=== PATIENT | female | born 1990 | race Caucasian/White ===

== ENCOUNTER 2018-08-02 11:06 | Emergency (ER) | payer MEDICAID, SELFPAY ==
[2018-08-02 11:21] VITALS: BP 133/71; PULSE 77; RESP 16; TEMP 36.7; O2SAT 97
--- NOTE | 2018-08-02 11:33 | W.ED.GENAD ---
Discharge Plan Disposition Patient Disposition: HOME Condition: Good Discharge Details Chief Complaint: Orthopedic Clinical Impression: Tendinopathy Primary Care Provider: Krystin Narayan ED Provider: Matthew Colmenares Home Meds and New Rx's Prescriptions: No Action levonorgestrel [Mirena] 1 EACH intrauterine device 1 ea Intrauterine ONCE Qty: 1 RF: 0 sertraline 50 MG tablet 200 mg PO DAILY RF: 0 Discharge Instructions Instructions: Tenosynovitis (ED) Stand Alone Forms: Physical Therapy Referral, Work Release Referrals: Krystin Narayan [Primary Care Provider] - Return if symptoms worsen Discharge Data Discharge Date/Time-TO BE ENTERED AT DEPARTURE: 08/02/18 12:59 Medical Decision Making Possible carpal tunnel syndrome. Will x-ray, provide universal wrist splint and have her attend PT. Advised to f/u with pcp in a month for f/u and further treatment if needed. Apprised of normal x-rays. Nurse fitted for universal wrist splint. Advised to wear all the time especially at night. Will refer to PT. Exam and history is consistent with carpal tunnel or tenosynovitis. Advised to f/u with pcp. Provided work note. Advised to use NSAID of her choice for pain. Medical Records Medical records reviewed: Yes I reviewed the patient's medical records. Imaging Data Radiologic Study: Imaging: X-Ray My impression: No acute bolivar pathology. No fracture visualized. HPI General Mode of arrival: ambulatory. Date/Time Provider Initiated Documentation: 08/02/18 11:21. Limitations to Documentation: no limitations. Information obtained by: patient. History of Present Illness 27 year old F presents to the emergency department with the chief complaint of tenosynovitis, HPI Narrative: 27 y/o female here with c/o right wrist and hand pain with intermittent numbness. She explains she has had it before but it went away after wrapping with an LAISHA wrap. She notices it the most at night. 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 Related Data Home Medications Medication Instructions Recorded Confirmed levonorgestrel [Mirena] 1 ea INTRAUTERINE ONCE #1 implant 12/25/17 08/02/18 sertraline 200 mg PO DAILY 08/02/18 08/02/18 Allergies Allergy/AdvReac Type Severity Reaction Status Date / Time Fish Containing Products AdvReac Mild Nausea Unverified 08/02/18 11:23 General Stated Complaint: Orthopedic DILSHAD: 4 Review of Systems Musculoskeletal Reports arthralgias (right wrist), Reports numbness (right hand fingers) and Reports tingling (right hand fingers) Neurologic Reports numbness (right hand fingers) and Reports tingling (right hand fingers) PFSH Family History Mother Depression Brother Depression Father No problems noted. Sister No problems noted. Sister No problems noted. Sister No problems noted. Sister No problems noted. Medical History Asthma Congenital stenosis of pulmonary valve Depression Social History Smoking/Tobacco Use Status: Current every day Surgical History wisdom tooth extraction Exam Const General: cooperative, healthy appearing, comfortable and no acute distress Nutritional Appearance: overweight Orientation: alert and oriented x3 Neuro General: alert, awake, oriented x3 and gait normal Sensory Exam: no sensory deficits noted Extrem General: normal to inspection, full ROM and normal capillary refill Right upper extremity: normal to inspection, full ROM, normal capillary refill, no joint enlargement and wrist Details: normal to inspection, tenderness Location: of the dorsal wrist (right), normal vascular exam, radial pulse present, ulnar pulse present, Tinel's negative (positive) and Phalen's negative (positive numbness and tingling ); no deformity; no cyanosis Psych Appearance: grossly normal Speech and Movement: speech and movement normal Mood: congruent mood Affect: normal affect Attitude: cooperative Thought Process: normal Thought Content: normal Insight: insight good Judgment: judgment good Course Vital Signs Temperature 36.7 C 08/02/18 11:21 Pulse 77 08/02/18 11:21 Respiratory Rate 16 08/02/18 11:21 Blood Pressure 133/71 08/02/18 11:21 Pulse Oximetry 97 08/02/18 11:21 Temperature 36.7 C 08/02/18 11:21 Temperature Source Temporal Artery Scan 08/02/18 11:21 Pulse 77 08/02/18 11:21 Respiratory Rate 16 08/02/18 11:21 Blood Pressure 133/71 08/02/18 11:21 Blood Pressure Position Sitting 08/02/18 11:21 Pulse Oximetry 97 08/02/18 11:21 Oxygen Delivery Method Room Air 08/02/18 11:21 Oxygen Flow Rate 0 08/02/18 11:21 Pain Level 5 08/02/18 11:21
--- NOTE | 2018-08-02 11:39 | ED.GENADUL_ITS ---
Discharge Plan Disposition Patient Disposition: HOME Condition: Good Discharge Details Chief Complaint: Orthopedic Clinical Impression: Tendinopathy Primary Care Provider: Krystin Narayan ED Provider: Matthew Colmenares Home Meds and New Rx's Prescriptions: No Action levonorgestrel [Mirena] 1 EACH intrauterine device 1 ea Intrauterine ONCE Qty: 1 RF: 0 sertraline 50 MG tablet 200 mg PO DAILY RF: 0 Discharge Instructions Instructions: Tenosynovitis (ED) Stand Alone Forms: Physical Therapy Referral, Work Release Referrals: Krystin Narayan [Primary Care Provider] - Return if symptoms worsen Discharge Data Discharge Date/Time-TO BE ENTERED AT DEPARTURE: 08/02/18 12:59 Medical Decision Making Possible carpal tunnel syndrome. Will x-ray, provide universal wrist splint and have her attend PT. Advised to f/u with pcp in a month for f/u and further treatment if needed. Apprised of normal x-rays. Nurse fitted for universal wrist splint. Advised to wear all the time especially at night. Will refer to PT. Exam and history is consistent with carpal tunnel or tenosynovitis. Advised to f/u with pcp. Provided work note. Advised to use NSAID of her choice for pain. Medical Records Medical records reviewed: Yes I reviewed the patient's medical records. Imaging Data Radiologic Study: Imaging: X-Ray My impression: No acute bolivar pathology. No fracture visualized. HPI General Mode of arrival: ambulatory . Date/Time Provider Initiated Documentation: 08/02/18 11:21 . Limitations to Documentation: no limitations . Information obtained by: patient . History of Present Illness 27 year old F presents to the emergency department with the chief complaint of tenosynovitis, HPI Narrative: 27 y/o female here with c/o right wrist and hand pain with intermittent numbness. She explains she has had it before but it went away after wrapping with an LAISHA wrap. She notices it the most at night. 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 Related Data Home Medications Medication Instructions Recorded Confirmed levonorgestrel [Mirena] 1 ea INTRAUTERINE ONCE #1 implant 12/25/17 08/02/18 sertraline 200 mg PO DAILY 08/02/18 08/02/18 Allergies Allergy/AdvReac Type Severity Reaction Status Date / Time Fish Containing Products AdvReac Mild Nausea Unverified 08/02/18 11:23 General Stated Complaint: Orthopedic DILSHAD: 4 Review of Systems Musculoskeletal Reports arthralgias (right wrist), Reports numbness (right hand fingers) and Reports tingling (right hand fingers) Neurologic Reports numbness (right hand fingers) and Reports tingling (right hand fingers) PFSH Family History Mother Depression Brother Depression Father No problems noted. Sister No problems noted. Sister No problems noted. Sister No problems noted. Sister No problems noted. Medical History Asthma Congenital stenosis of pulmonary valve Depression Social History Smoking/Tobacco Use Status: Current every day Surgical History wisdom tooth extraction Exam Const General: cooperative, healthy appearing, comfortable and no acute distress Nutritional Appearance: overweight Orientation: alert and oriented x3 Neuro General: alert, awake, oriented x3 and gait normal Sensory Exam: no sensory deficits noted Extrem General: normal to inspection, full ROM and normal capillary refill Right upper extremity: normal to inspection, full ROM, normal capillary refill, no joint enlargement and wrist Details: normal to inspection, tenderness Location: of the dorsal wrist (right), normal vascular exam, radial pulse present, ulnar pulse present, Tinel's negative (positive) and Phalen's negative (positive numbness and tingling ); no deformity; no cyanosis Psych Appearance: grossly normal Speech and Movement: speech and movement normal Mood: congruent mood Affect: normal affect Attitude: cooperative Thought Process: normal Thought Content: normal Insight: insight good Judgment: judgment good Course Vital Signs Temperature 36.7 C 08/02/18 11:21 Pulse 77 08/02/18 11:21 Respiratory Rate 16 08/02/18 11:21 Blood Pressure 133/71 08/02/18 11:21 Pulse Oximetry 97 08/02/18 11:21 Temperature 36.7 C 08/02/18 11:21 Temperature Source Temporal Artery Scan 08/02/18 11:21 Pulse 77 08/02/18 11:21 Respiratory Rate 16 08/02/18 11:21 Blood Pressure 133/71 08/02/18 11:21 Blood Pressure Position Sitting 08/02/18 11:21 Pulse Oximetry 97 08/02/18 11:21 Oxygen Delivery Method Room Air 08/02/18 11:21 Oxygen Flow Rate 0 08/02/18 11:21 Pain Level 5 08/02/18 11:21
--- NOTE | 2018-08-02 11:49 | DI.RAD_ITS ---
SYMPTOMS/DIAGNOSIS: PAIN AND NUMBNESS WITH NO INJURY RIGHT HAND: No trauma history is provided. No bony or joint abnormality is apparent. RIGHT WRIST: There is minimal degenerative change involving the intermultangular joint. Nil else.
== END 2018-08-02 12:59 | disposition home or self-care (01) ==
LOC: ER 12:48
PROVIDERS: Emergency Provider Nurse Practitioner Family; PCP Nurse Practitioner
DX: M77.9 Enthesopathy, unspecified (principal)
CPT/HCPCS: 29125; 99284; 73110; 73130; 99282; L3908

== ENCOUNTER 2018-08-21 09:16 | Emergency (ER) | payer MEDICAID, SELFPAY ==
[2018-08-21 09:23] VITALS: BP 122/74; PULSE 71; RESP 16; TEMP 36.6; O2SAT 98
--- NOTE | 2018-08-21 09:58 | W.ED.GENAD ---
Discharge Plan Disposition Patient Disposition: HOME Discharge Details Chief Complaint: Sorethroat Clinical Impression: Acute sore throat, URI (upper respiratory infection) Primary Care Provider: Krystin Narayan ED Provider: Jimmy Taylor Home Meds and New Rx's Prescriptions: Continue levonorgestrel [Mirena] 1 EACH intrauterine device 1 ea Intrauterine ONCE Qty: 1 RF: 0 sertraline 50 MG tablet 200 mg PO DAILY RF: 0 No Action nystatin 100,000 unit/mL suspension 5 ml PO QID Qty: 280 RF: 0 Discharge Instructions Instructions: Pharyngitis (ED), Upper Respiratory Infection (ED) Additional Instructions: Please drink plenty of fluids and allow for plenty of rest. Please contact your primary care physician to arrange follow-up. Call today. Return to the ER for any worsening or new concerning symptoms. Stand Alone Forms: Work Release Referrals: Krystin Narayan [Primary Care Provider] - Discharge Data Discharge Date/Time-TO BE ENTERED AT DEPARTURE: 08/21/18 10:10 Medical Decision Making 27-year-old female here with sore throat, bilateral ear pain, headache and cough. Afebrile. Pharyngitis on exam. Rapid strep test negative. Plan to treat with supportive care for likely viral URI. Decadron p.o. and ibuprofen p.o. given here. Patient was advised to follow-up with her primary care physician and return should she have any worsening or new concerning symptoms. Work note was provided for today in the next couple days. Patient was advised to return immediately should she have any worsening or new concerning symptoms. HPI General Mode of arrival: ambulatory. Date/Time Provider Initiated Documentation: 08/21/18 09:53. Limitations to Documentation: no limitations. Information obtained by: patient. HPI Narrative: 27-year-old female here with sore throat. Sore throat started 3 days ago and has persisted. She has associated bilateral ear pain, headache, cough that is nonproductive. Sore throat is moderate to severe. Worse with swallowing. 3-year-old child is sick with URI symptoms. Immunizations utd. Related Data Home Medications Medication Instructions Recorded Confirmed levonorgestrel [Mirena] 1 ea INTRAUTERINE ONCE #1 implant 12/25/17 08/26/18 sertraline 200 mg PO DAILY 08/02/18 08/26/18 nystatin 5 ml PO QID #280 ml 08/26/18 Previous Rx's Medication Instructions Recorded nystatin 5 ml PO QID #280 ml 08/26/18 Allergies Allergy/AdvReac Type Severity Reaction Status Date / Time Fish Containing Products AdvReac Mild Nausea Unverified 08/26/18 09:25 General Stated Complaint: Sorethroat DILSHAD: 4 Review of Systems Constitutional Denies fever(s) ENT Reports nasal congestion Respiratory Reports as per HPI PFSH Family History Mother Depression Brother Depression Father No problems noted. Sister No problems noted. Sister No problems noted. Sister No problems noted. Sister No problems noted. Medical History Asthma Congenital stenosis of pulmonary valve Depression Social History Smoking/Tobacco Use Status: Current every day Surgical History wisdom tooth extraction Social History Smoking/Tobacco Use Status: Current every day Exam Const General: cooperative and no acute distress HENMT Mouth: moist mucous membranes Throat: uvula midline, no peritonsillar masses, posterior oropharynx abnormal erythema and no uvular edema Eyes Conjunctivae: normal conjunctivae Sclera: normal sclerae Neck Neck: trachea midline and supple Resp Auscultation: clear to auscultation bilaterally, no rales, no rhonchi and no wheezes Cardio Jugular venous pressure: no JVD Rate: regular rate and not tachycardic Rhythm: regular rhythm GI Palpation: soft, not firm, no guarding, no masses, not rigid and nontender Skin General skin exam: no rashes or lesions noted Neuro General: alert, awake, oriented x3 and tone normal Extrem General: no edema Psych Appearance: grossly normal Mental Status: mental status grossly normal Course Vital Signs Temperature 36.6 C 08/21/18 09:23 Pulse 71 08/21/18 09:23 Respiratory Rate 16 08/21/18 09:23 Blood Pressure 122/74 08/21/18 09:23 Pulse Oximetry 98 08/21/18 09:23 Temperature 36.6 C 08/21/18 09:23 Temperature Source Skin 08/21/18 09:23 Pulse 71 08/21/18 09:23 Respiratory Rate 16 08/21/18 09:23 Respiratory Effort Non-Labored 08/21/18 09:23 Blood Pressure 122/74 08/21/18 09:23 Blood Pressure Position Sitting 08/21/18 09:23 Pulse Oximetry 98 08/21/18 09:23 Oxygen Delivery Method Room Air 08/21/18 09:23 Oxygen Flow Rate 0 08/21/18 09:23 Pain Level 8 08/21/18 09:23 Lab/Test Results Lab/Test Results: 08/21/18 09:31 Pharynx Streptococcus Screen ([facility]ERRERA) - Pending POC Strep Test-RENNY(Rapid) Start: 08/21/18 09:41 Freq: .Rapid Strep Test Status: Active Protocol: Document 08/21/18 09:42 MMQ (Rec: 08/21/18 09:42 MMQ [id number]) Strep test-RENNY(Rapid)-POC POC-Strep test-RENNY (Rapid) Negative POC-Strep test-RENNY (Rapid) Negative
[2018-08-21] MEDS: Ibuprofen 600 MG TAB PO (10:04)
[2018-08-21] MEDS: Dexamethasone 10 MG/ML VIAL PO (10:04)
--- NOTE | 2018-08-21 10:09 | ED.GENADUL_ITS ---
Discharge Plan Disposition Patient Disposition: HOME Discharge Details Chief Complaint: Sorethroat Clinical Impression: Acute sore throat, URI (upper respiratory infection) Primary Care Provider: Krystin Narayan ED Provider: Jimmy Taylor Home Meds and New Rx's Prescriptions: Continue levonorgestrel [Mirena] 1 EACH intrauterine device 1 ea Intrauterine ONCE Qty: 1 RF: 0 sertraline 50 MG tablet 200 mg PO DAILY RF: 0 No Action nystatin 100,000 unit/mL suspension 5 ml PO QID Qty: 280 RF: 0 Discharge Instructions Instructions: Pharyngitis (ED), Upper Respiratory Infection (ED) Additional Instructions: Please drink plenty of fluids and allow for plenty of rest. Please contact your primary care physician to arrange follow-up. Call today. Return to the ER for any worsening or new concerning symptoms. Stand Alone Forms: Work Release Referrals: Krystin Narayan [Primary Care Provider] - Discharge Data Discharge Date/Time-TO BE ENTERED AT DEPARTURE: 08/21/18 10:10 Medical Decision Making 27-year-old female here with sore throat, bilateral ear pain, headache and cough. Afebrile. Pharyngitis on exam. Rapid strep test negative. Plan to treat with supportive care for likely viral URI. Decadron p.o. and ibuprofen p.o. given here. Patient was advised to follow-up with her primary care physician and return should she have any worsening or new concerning symptoms. Work note was provided for today in the next couple days. Patient was advised to return immediately should she have any worsening or new concerning symptoms. HPI General Mode of arrival: ambulatory . Date/Time Provider Initiated Documentation: 08/21/18 09:53 . Limitations to Documentation: no limitations . Information obtained by: patient . HPI Narrative: 27-year-old female here with sore throat. Sore throat started 3 days ago and has persisted. She has associated bilateral ear pain, headache, cough that is nonproductive. Sore throat is moderate to severe. Worse with swallowing. 3-year-old child is sick with URI symptoms. Immunizations utd. Related Data Home Medications Medication Instructions Recorded Confirmed levonorgestrel [Mirena] 1 ea INTRAUTERINE ONCE #1 implant 12/25/17 08/26/18 sertraline 200 mg PO DAILY 08/02/18 08/26/18 nystatin 5 ml PO QID #280 ml 08/26/18 Previous Rx's Medication Instructions Recorded nystatin 5 ml PO QID #280 ml 08/26/18 Allergies Allergy/AdvReac Type Severity Reaction Status Date / Time Fish Containing Products AdvReac Mild Nausea Unverified 08/26/18 09:25 General Stated Complaint: Sorethroat DILSHAD: 4 Review of Systems Constitutional Denies fever(s) ENT Reports nasal congestion Respiratory Reports as per HPI PFSH Family History Mother Depression Brother Depression Father No problems noted. Sister No problems noted. Sister No problems noted. Sister No problems noted. Sister No problems noted. Medical History Asthma Congenital stenosis of pulmonary valve Depression Social History Smoking/Tobacco Use Status: Current every day Surgical History wisdom tooth extraction Social History Smoking/Tobacco Use Status: Current every day Exam Const General: cooperative and no acute distress HENMT Mouth: moist mucous membranes Throat: uvula midline, no peritonsillar masses, posterior oropharynx abnormal erythema and no uvular edema Eyes Conjunctivae: normal conjunctivae Sclera: normal sclerae Neck Neck: trachea midline and supple Resp Auscultation: clear to auscultation bilaterally, no rales, no rhonchi and no wheezes Cardio Jugular venous pressure: no JVD Rate: regular rate and not tachycardic Rhythm: regular rhythm GI Palpation: soft, not firm, no guarding, no masses, not rigid and nontender Skin General skin exam: no rashes or lesions noted Neuro General: alert, awake, oriented x3 and tone normal Extrem General: no edema Psych Appearance: grossly normal Mental Status: mental status grossly normal Course Vital Signs Temperature 36.6 C 08/21/18 09:23 Pulse 71 08/21/18 09:23 Respiratory Rate 16 08/21/18 09:23 Blood Pressure 122/74 08/21/18 09:23 Pulse Oximetry 98 08/21/18 09:23 Temperature 36.6 C 08/21/18 09:23 Temperature Source Skin 08/21/18 09:23 Pulse 71 08/21/18 09:23 Respiratory Rate 16 08/21/18 09:23 Respiratory Effort Non-Labored 08/21/18 09:23 Blood Pressure 122/74 08/21/18 09:23 Blood Pressure Position Sitting 08/21/18 09:23 Pulse Oximetry 98 08/21/18 09:23 Oxygen Delivery Method Room Air 08/21/18 09:23 Oxygen Flow Rate 0 08/21/18 09:23 Pain Level 8 08/21/18 09:23 Lab/Test Results Lab/Test Results: 08/21/18 09:31 Pharynx Streptococcus Screen ([facility]ERRERA) - Pending POC Strep Test-RENNY(Rapid) Start: 08/21/18 09: 41 Freq: .Rapid Strep Test Status: Active Protocol: Document 08/21/18 09:42 MMQ (Rec: 08/21/18 09:42 MMQ [id number]) Strep test-RENNY(Rapid)-POC POC-Strep test-RENNY (Rapid) Negative POC-Strep test-RENNY (Rapid) Negative
== END 2018-08-21 10:10 | disposition home or self-care (01) ==
PROVIDERS: Emergency Provider Student in an Organized Health Care Education/Training Program; PCP Nurse Practitioner
DX: J06.9 Acute upper respiratory infection, unspecified (principal)
CPT/HCPCS: 87880; 99282; 87081; J1100

== ENCOUNTER 2018-08-26 09:18 | Emergency (ER) | payer MEDICAID, SELFPAY ==
[2018-08-26 09:23] VITALS: BP 137/78; PULSE 94; RESP 16; TEMP 36.2; O2SAT 96
--- NOTE | 2018-08-26 10:07 | W.ED.GENAD ---
Discharge Plan Disposition Patient Disposition: HOME Condition: Fair Discharge Details Chief Complaint: Sorethroat Clinical Impression: Oral thrush Primary Care Provider: Krystin Narayan ED Provider: Griselda Rodriguez Home Meds and New Rx's Prescriptions: New nystatin 100,000 unit/mL suspension 5 ml PO QID Qty: 280 RF: 0 Continue levonorgestrel [Mirena] 1 EACH intrauterine device 1 ea Intrauterine ONCE Qty: 1 RF: 0 sertraline 50 MG tablet 200 mg PO DAILY RF: 0 Discharge Instructions Instructions: Oral Candidiasis (ED) Additional Instructions: Encourage hydration. Remove tongue ring. Nystatin as prescribed, swish and spit with this 4 times daily. Please follow up with primary care in one week. If you develop fevers/chills, inability to stay hydrated, increased pain or other new/worsening symptoms please seek care urgently once again. Referrals: Krystin Narayan [Primary Care Provider] - Discharge Data Discharge Date/Time-TO BE ENTERED AT DEPARTURE: 08/26/18 10:15 Medical Decision Making Patient is a 27-year-old female, accompanied by family members, with chief complaint of oral thrush. Patient was seen here on 08/21/18 at which time she was complaining of sore throat. She was given an oral dose of Decadron. She reports the following day she began having a thrush-like symptoms. States that she has a white plaque on her tongue and she is able to scrape off. If this does cause discomfort and altered taste. She denies any fevers or chills. Reports that the sore throat has resolved as has her other upper respiratory symptoms. On exam, she does have a thick white covering over the tongue that is able to be scraped off easily. This is not noted in the posterior oropharynx. No erythema, swelling, trismus. No swelling under the tongue. No lymphadenopathy. Lungs are clear on exam. Patient is an active smoker but trying to quit, I did encourage this. She does have a tongue ring which I advised to remove. Patient will be placed on nystatin swish and swallow. We discussed new/worsening symptoms when to seek care urgently once again. Advise follow-up with primary care in 1 week. All of her questions and concerns were addressed and she is in agreement this plan. HPI General Mode of arrival: ambulatory. Date/Time Provider Initiated Documentation: 08/26/18 09:59. Limitations to Documentation: no limitations. Information obtained by: patient and family. History of Present Illness 27 year old F presents to the emergency department with the chief complaint of thrush, and is localized to the mouth. Patient started experiencing this day(s) and it has been constant. No relieving factors improve symptom(s), No exacerbating factors reported . Patient notes denies chest pain, cough, fever/chills, loss of appetite, nausea/vomiting, rash and shortness of breath. Patient did receive the following treatments prior to arrival, none Related Data Home Medications Medication Instructions Recorded Confirmed levonorgestrel [Mirena] 1 ea INTRAUTERINE ONCE #1 implant 12/25/17 08/26/18 sertraline 200 mg PO DAILY 08/02/18 08/26/18 nystatin 5 ml PO QID #280 ml 08/26/18 Previous Rx's Medication Instructions Recorded nystatin 5 ml PO QID #280 ml 08/26/18 Allergies Allergy/AdvReac Type Severity Reaction Status Date / Time Fish Containing Products AdvReac Mild Nausea Unverified 08/26/18 09:25 General Stated Complaint: Sorethroat DILSHAD: 4 Review of Systems Constitutional Reports as per HPI and Denies headache(s) Eyes Reports as per HPI, Denies eye discharge and Denies irritation ENT Reports as per HPI, Denies change in voice, Denies dental pain, Denies ear discharge, Denies otalgia, Denies headache(s), Denies hoarseness, Reports mouth lesions (white coating on tongue), Denies mouth pain, Denies nasal congestion, Denies nasal discharge, Denies sinus pain, Denies sinus pressure and Denies sore throat Cardiovascular Reports as per HPI, Denies chest pain and Denies dyspnea Respiratory Denies dyspnea Gastrointestinal Reports as per HPI, Denies abdominal pain, Denies change in bowel habits, Denies nausea and Denies vomiting Integumentary/Breasts Reports as per HPI and Denies rash Neurologic Denies headache(s) PFS Asthma Congenital stenosis of pulmonary valve Depression Family History Mother Depression Brother Depression Father No problems noted. Sister No problems noted. Sister No problems noted. Sister No problems noted. Sister No problems noted. wisdom tooth extraction Family History Mother Depression Brother Depression Father No problems noted. Sister No problems noted. Sister No problems noted. Sister No problems noted. Sister No problems noted. Medical History Asthma Congenital stenosis of pulmonary valve Depression Social History Smoking/Tobacco Use Status: Current every day Surgical History wisdom tooth extraction Social History Smoking/Tobacco Use Status: Current every day Exam Const General: cooperative, healthy appearing, comfortable, no acute distress, well developed and well groomed Nutritional Appearance: average body habitus and well nourished Orientation: alert and awake HENMT Head: normal to inspection, normocephalic and atraumatic Ears: hearing grossly normal bilaterally, external ears normal and TM's normal bilaterally General nose exam: external nose normal and nares normal Face and sinus: normal facial exam, sinuses nontender and face symmetric Mouth: oral mucosae normal, lip normal, abnormal tongue (patient has a thick, white coating over the tongue, this is able to be scraped off. This is not noted elsewhere. Tongue peircing noted. ), oropharynx normal and moist mucous membranes Teeth and gingiva: dentition normal Throat: posterior oropharynx normal, tonsils normal and uvula midline Eyes General: appearance normal, both eyes and all related structures Neck Neck: normal visual inspection, full ROM, no lymphadenopathy and no meningeal signs Resp Effort & Inspection: normal respiratory effort, able to speak in complete sentences and no respiratory distress Auscultation: clear to auscultation bilaterally, no rales, no rhonchi and no wheezes Cardio Rate: regular rate Rhythm: regular rhythm Heart Sounds: S1 normal and S2 normal Skin General skin exam: no rashes or lesions noted Neuro General: alert and awake Cognition: normal cognition Speech: speech normal Gait: normal gait Psych Appearance: grossly normal and well kempt Mental Status: mental status grossly normal Speech and Movement: speech and movement normal Course Vital Signs Temperature 36.2 C L 08/26/18 09:23 Pulse 94 H 08/26/18 09:23 Respiratory Rate 16 08/26/18 09:23 Blood Pressure 137/78 08/26/18 09:23 Pulse Oximetry 96 08/26/18 09:23 Temperature 36.2 C L 08/26/18 09:23 Temperature Source Skin 08/26/18 09:23 Pulse 94 H 08/26/18 09:23 Respiratory Rate 16 08/26/18 09:23 Respiratory Effort 08/26/18 09:23 Blood Pressure 137/78 08/26/18 09:23 Blood Pressure Position Sitting 08/26/18 09:23 Pulse Oximetry 96 08/26/18 09:23 Oxygen Delivery Method Room Air 08/26/18 09:23 Oxygen Flow Rate 0 08/26/18 09:23 Pain Level 0 08/26/18 09:23
--- NOTE | 2018-08-26 10:16 | ED.GENADUL_ITS ---
Discharge Plan Disposition Patient Disposition: HOME Condition: Fair Discharge Details Chief Complaint: Sorethroat Clinical Impression: Oral thrush Primary Care Provider: Krystin Narayan ED Provider: Griselda Rodriguez Home Meds and New Rx's Prescriptions: New nystatin 100,000 unit/mL suspension 5 ml PO QID Qty: 280 RF: 0 Continue levonorgestrel [Mirena] 1 EACH intrauterine device 1 ea Intrauterine ONCE Qty: 1 RF: 0 sertraline 50 MG tablet 200 mg PO DAILY RF: 0 Discharge Instructions Instructions: Oral Candidiasis (ED) Additional Instructions: Encourage hydration. Remove tongue ring. Nystatin as prescribed, swish and spit with this 4 times daily. Please follow up with primary care in one week. If you develop fevers/chills, inability to stay hydrated, increased pain or other new/worsening symptoms please seek care urgently once again. Referrals: Krystin Narayan [Primary Care Provider] - Discharge Data Discharge Date/Time-TO BE ENTERED AT DEPARTURE: 08/26/18 10:15 Medical Decision Making Patient is a 27-year-old female, accompanied by family members, with chief complaint of oral thrush. Patient was seen here on 08/21/18 at which time she was complaining of sore throat. She was given an oral dose of Decadron. She reports the following day she began having a thrush-like symptoms. States that she has a white plaque on her tongue and she is able to scrape off. If this does cause discomfort and altered taste. She denies any fevers or chills. Reports that the sore throat has resolved as has her other upper respiratory symptoms. On exam, she does have a thick white covering over the tongue that is able to be scraped off easily. This is not noted in the posterior oropharynx. No erythema, swelling, trismus. No swelling under the tongue. No lymphadenopathy. Lungs are clear on exam. Patient is an active smoker but trying to quit, I did encourage this. She does have a tongue ring which I advised to remove. Patient will be placed on nystatin swish and swallow. We discussed new/worsening symptoms when to seek care urgently once again. Advise follow-up with primary care in 1 week. All of her questions and concerns were addressed and she is in agreement this plan. HPI General Mode of arrival: ambulatory . Date/Time Provider Initiated Documentation: 08/26/18 09:59 . Limitations to Documentation: no limitations . Information obtained by: patient and family . History of Present Illness 27 year old F presents to the emergency department with the chief complaint of thrush, and is localized to the mouth. Patient started experiencing this day (s) and it has been constant. No relieving factors improve symptom(s), No exacerbating factors reported . Patient notes denies chest pain, cough, fever/ chills, loss of appetite, nausea/vomiting, rash and shortness of breath. Patient did receive the following treatments prior to arrival, none Related Data Home Medications Medication Instructions Recorded Confirmed levonorgestrel [Mirena] 1 ea INTRAUTERINE ONCE #1 implant 12/25/17 08/26/18 sertraline 200 mg PO DAILY 08/02/18 08/26/18 nystatin 5 ml PO QID #280 ml 08/26/18 Previous Rx's Medication Instructions Recorded nystatin 5 ml PO QID #280 ml 08/26/18 Allergies Allergy/AdvReac Type Severity Reaction Status Date / Time Fish Containing Products AdvReac Mild Nausea Unverified 08/26/18 09:25 General Stated Complaint: Sorethroat DILSHAD: 4 Review of Systems Constitutional Reports as per HPI and Denies headache(s) Eyes Reports as per HPI, Denies eye discharge and Denies irritation ENT Reports as per HPI, Denies change in voice, Denies dental pain, Denies ear discharge, Denies otalgia, Denies headache(s), Denies hoarseness, Reports mouth lesions (white coating on tongue), Denies mouth pain, Denies nasal congestion, Denies nasal discharge, Denies sinus pain, Denies sinus pressure and Denies sore throat Cardiovascular Reports as per HPI, Denies chest pain and Denies dyspnea Respiratory Denies dyspnea Gastrointestinal Reports as per HPI, Denies abdominal pain, Denies change in bowel habits, Denies nausea and Denies vomiting Integumentary/Breasts Reports as per HPI and Denies rash Neurologic Denies headache(s) PFS Asthma Congenital stenosis of pulmonary valve Depression Family History Mother Depression Brother Depression Father No problems noted. Sister No problems noted. Sister No problems noted. Sister No problems noted. Sister No problems noted. wisdom tooth extraction Family History Mother Depression Brother Depression Father No problems noted. Sister No problems noted. Sister No problems noted. Sister No problems noted. Sister No problems noted. Medical History Asthma Congenital stenosis of pulmonary valve Depression Social History Smoking/Tobacco Use Status: Current every day Surgical History wisdom tooth extraction Social History Smoking/Tobacco Use Status: Current every day Exam Const General: cooperative, healthy appearing, comfortable, no acute distress, well developed and well groomed Nutritional Appearance: average body habitus and well nourished Orientation: alert and awake HENMT Head: normal to inspection, normocephalic and atraumatic Ears: hearing grossly normal bilaterally, external ears normal and TM's normal bilaterally General nose exam: external nose normal and nares normal Face and sinus: normal facial exam, sinuses nontender and face symmetric Mouth: oral mucosae normal, lip normal, abnormal tongue (patient has a thick, white coating over the tongue, this is able to be scraped off. This is not noted elsewhere. Tongue peircing noted. ), oropharynx normal and moist mucous membranes Teeth and gingiva: dentition normal Throat: posterior oropharynx normal, tonsils normal and uvula midline Eyes General: appearance normal, both eyes and all related structures Neck Neck: normal visual inspection, full ROM, no lymphadenopathy and no meningeal signs Resp Effort & Inspection: normal respiratory effort, able to speak in complete sentences and no respiratory distress Auscultation: clear to auscultation bilaterally, no rales, no rhonchi and no wheezes Cardio Rate: regular rate Rhythm: regular rhythm Heart Sounds: S1 normal and S2 normal Skin General skin exam: no rashes or lesions noted Neuro General: alert and awake Cognition: normal cognition Speech: speech normal Gait: normal gait Psych Appearance: grossly normal and well kempt Mental Status: mental status grossly normal Speech and Movement: speech and movement normal Course Vital Signs Temperature 36.2 C L 08/26/18 09:23 Pulse 94 H 08/26/18 09:23 Respiratory Rate 16 08/26/18 09:23 Blood Pressure 137/78 08/26/18 09:23 Pulse Oximetry 96 08/26/18 09:23 Temperature 36.2 C L 08/26/18 09:23 Temperature Source Skin 08/26/18 09:23 Pulse 94 H 08/26/18 09:23 Respiratory Rate 16 08/26/18 09:23 Respiratory Effort 08/26/18 09:23 Blood Pressure 137/78 08/26/18 09:23 Blood Pressure Position Sitting 08/26/18 09:23 Pulse Oximetry 96 08/26/18 09:23 Oxygen Delivery Method Room Air 08/26/18 09:23 Oxygen Flow Rate 0 08/26/18 09:23 Pain Level 0 08/26/18 09:23
== END 2018-08-26 10:15 | disposition home or self-care (01) ==
LOC: ER 10:21
PROVIDERS: Emergency Provider Physician Assistant; PCP Nurse Practitioner
DX: B37.0 Candidal stomatitis (principal)
CPT/HCPCS: 99283

== ENCOUNTER 2018-09-03 08:13 | Emergency (ER) | payer MEDICAID, SELFPAY ==
[2018-09-03 08:31] VITALS: BP 133/76; PULSE 79; RESP 16; TEMP 36.5; O2SAT 98
--- NOTE | 2018-09-03 08:46 | W.ED.GENAD ---
Discharge Plan Disposition Patient Disposition: HOME Condition: Good Discharge Details Chief Complaint: Orthopedic Clinical Impression: Carpal tunnel syndrome Primary Care Provider: Krystin Narayan ED Provider: Matthew Colmenares Home Meds and New Rx's Prescriptions: New methylprednisolone [Medrol (Chava)] 4 mg tablets,dose pack 4 mg PO DIRECTED Qty: 21 RF: 0 No Action levonorgestrel [Mirena] 1 EACH intrauterine device 1 ea Intrauterine ONCE Qty: 1 RF: 0 sertraline 50 MG tablet 200 mg PO DAILY RF: 0 nystatin 100,000 unit/mL suspension 5 ml PO QID Qty: 280 RF: 0 Discharge Instructions Instructions: Paresthesia (ED) Stand Alone Forms: Work Release Referrals: Joe Price MD [ [facility] STAFF PHYSICIAN] - Iona Urena [NURSE PRACTITIONER] - Bart Feliciano MD [ [facility] STAFF PHYSICIAN] - Shawn Andersen MD [ [facility] STAFF PHYSICIAN] - Keira Zhang MD [ [facility] STAFF PHYSICIAN] - Medical Decision Making Patient exam is no consistent with CPS. Her history is, however. I advised to continue wearing the wrist splint, especially at night and use Ibuprofen for the pain and swelling. Use ice as well. I prescribed medrol dose pack 21 count. Referred to neurology for possible NCS and orthopedic. Reminded her to f/u with PT. Advised to return to PCP. [facility] General Date/Time Provider Initiated Documentation: 09/03/18 08:14. Limitations to Documentation: no limitations. Information obtained by: patient. History of Present Illness 27 year old F presents to the emergency department with the chief complaint of parathesia, HPI Narrative: 27 y/o female returns with c/o worsening pain and numbness and tingling to right wrist, hand and fingers. She is right hand dominant. She was evaluated approximately one month ago by myself here in the ED for similar complaint. I treated her for tenosynovitis at that time with wrist splint and referred to PT. She has not f/u with PT. X-rays were benign at that time. She describes the pain as excruciating and worse at night despite wearing the wrist splint we provided at last visit. 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 Related Data Home Medications Medication Instructions Recorded Confirmed levonorgestrel [Mirena] 1 ea INTRAUTERINE ONCE #1 implant 12/25/17 09/03/18 sertraline 200 mg PO DAILY 08/02/18 09/03/18 nystatin 5 ml PO QID #280 ml 08/26/18 09/03/18 methylprednisolone [Medrol (Chava)] 4 mg PO DIRECTED #21 dose pk 09/03/18 Previous Rx's Medication Instructions Recorded nystatin 5 ml PO QID #280 ml 08/26/18 methylprednisolone [Medrol (Chava)] 4 mg PO DIRECTED #21 dose pk 09/03/18 Allergies Allergy/AdvReac Type Severity Reaction Status Date / Time Fish Containing Products AdvReac Mild Nausea Unverified 09/03/18 08:34 General Stated Complaint: Orthopedic DILSHAD: 4 Review of Systems Musculoskeletal Reports numbness (right hand fingers, with pain) Neurologic Reports numbness (right hand fingers, with pain) PFSH Family History Mother Depression Brother Depression Father No problems noted. Sister No problems noted. Sister No problems noted. Sister No problems noted. Sister No problems noted. Medical History Asthma Congenital stenosis of pulmonary valve Depression Social History Smoking/Tobacco Use Status: Current every day Surgical History wisdom tooth extraction Social History Smoking/Tobacco Use Status: Current every day Exam Const General: cooperative, comfortable and no acute distress Nutritional Appearance: overweight Orientation: alert, awake and oriented x3 Extrem Right upper extremity: full ROM (with pain), elbow/forearm Details: normal ROM; no tenderness, wrist Details: normal to inspection and tenderness (to touch and movement) Location: of the distal radius, of the distal ulna, of the dorsal wrist and of the volar wrist and hand Details: normal to inspection (with velcro wrist splint in place), normal capillary refill, neuromotor exam normal Details: wrist extension normal, thumb opposition normal and fingers 2-5 ABduction normal, neurosensory exam normal Details: radial nerve sensory function normal, ulnar nerve sensory function normal, median nerve sensory function normal and digital nerve sensory function normal, tendon exam normal, tenderness Location: of the dorsal hand, of the palm, of the thumb, of the 2nd digit, of the 3rd digit, of the 4th digit and of the 5th digit, vascular exam Details: radial pulse present, ulnar pulse present and normal capillary refill and abnormal ROM of finger Details: pain with active ROM and pain with passive ROM Course Vital Signs Temperature 36.5 C 09/03/18 08:31 Pulse 79 09/03/18 08:31 Respiratory Rate 16 09/03/18 08:31 Blood Pressure 133/76 09/03/18 08:31 Pulse Oximetry 98 09/03/18 08:31 Temperature 36.5 C 09/03/18 08:31 Temperature Source Skin 09/03/18 08:31 Pulse 79 09/03/18 08:31 Respiratory Rate 16 09/03/18 08:31 Respiratory Effort Non-Labored 09/03/18 08:31 Blood Pressure 133/76 09/03/18 08:31 Blood Pressure Position Sitting 09/03/18 08:31 Pulse Oximetry 98 09/03/18 08:31 Oxygen Delivery Method Room Air 09/03/18 08:31 Oxygen Flow Rate 0 09/03/18 08:31 Pain Level 10 09/03/18 08:31
--- NOTE | 2018-09-03 08:55 | ED.GENADUL_ITS ---
Discharge Plan Disposition Patient Disposition: HOME Condition: Good Discharge Details Chief Complaint: Orthopedic Clinical Impression: Carpal tunnel syndrome Primary Care Provider: Krystin Narayan ED Provider: Matthew Colmenares Home Meds and New Rx's Prescriptions: New methylprednisolone [Medrol (Chava)] 4 mg tablets,dose pack 4 mg PO DIRECTED Qty: 21 RF: 0 No Action levonorgestrel [Mirena] 1 EACH intrauterine device 1 ea Intrauterine ONCE Qty: 1 RF: 0 sertraline 50 MG tablet 200 mg PO DAILY RF: 0 nystatin 100,000 unit/mL suspension 5 ml PO QID Qty: 280 RF: 0 Discharge Instructions Instructions: Paresthesia (ED) Stand Alone Forms: Work Release Referrals: Joe Price MD [ [facility] STAFF PHYSICIAN] - Iona Urena [NURSE PRACTITIONER] - Bart Feliciano MD [ [facility] STAFF PHYSICIAN] - Shawn Andersen MD [ [facility] STAFF PHYSICIAN] - Keira Zhang MD [ [facility] STAFF PHYSICIAN] - Medical Decision Making Patient exam is no consistent with CPS. Her history is, however. I advised to continue wearing the wrist splint, especially at night and use Ibuprofen for the pain and swelling. Use ice as well. I prescribed medrol dose pack 21 count. Referred to neurology for possible NCS and orthopedic. Reminded her to f/u with PT. Advised to return to PCP. [facility] General Date/Time Provider Initiated Documentation: 09/03/18 08:14 . Limitations to Documentation: no limitations . Information obtained by: patient . History of Present Illness 27 year old F presents to the emergency department with the chief complaint of parathesia, HPI Narrative: 27 y/o female returns with c/o worsening pain and numbness and tingling to right wrist, hand and fingers. She is right hand dominant. She was evaluated approximately one month ago by myself here in the ED for similar complaint. I treated her for tenosynovitis at that time with wrist splint and referred to PT. She has not f/u with PT. X-rays were benign at that time. She describes the pain as excruciating and worse at night despite wearing the wrist splint we provided at last visit. 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 Related Data Home Medications Medication Instructions Recorded Confirmed levonorgestrel [Mirena] 1 ea INTRAUTERINE ONCE #1 implant 12/25/17 09/03/18 sertraline 200 mg PO DAILY 08/02/18 09/03/18 nystatin 5 ml PO QID #280 ml 08/26/18 09/03/18 methylprednisolone [Medrol (Chava)] 4 mg PO DIRECTED #21 dose pk 09/03/18 Previous Rx's Medication Instructions Recorded nystatin 5 ml PO QID #280 ml 08/26/18 methylprednisolone [Medrol (Chava)] 4 mg PO DIRECTED #21 dose pk 09/03/18 Allergies Allergy/AdvReac Type Severity Reaction Status Date / Time Fish Containing Products AdvReac Mild Nausea Unverified 09/03/18 08:34 General Stated Complaint: Orthopedic DILSHAD: 4 Review of Systems Musculoskeletal Reports numbness (right hand fingers, with pain) Neurologic Reports numbness (right hand fingers, with pain) PFSH Family History Mother Depression Brother Depression Father No problems noted. Sister No problems noted. Sister No problems noted. Sister No problems noted. Sister No problems noted. Medical History Asthma Congenital stenosis of pulmonary valve Depression Social History Smoking/Tobacco Use Status: Current every day Surgical History wisdom tooth extraction Social History Smoking/Tobacco Use Status: Current every day Exam Const General: cooperative, comfortable and no acute distress Nutritional Appearance: overweight Orientation: alert, awake and oriented x3 Extrem Right upper extremity: full ROM (with pain), elbow/forearm Details: normal ROM; no tenderness, wrist Details: normal to inspection and tenderness (to touch and movement) Location: of the distal radius, of the distal ulna, of the dorsal wrist and of the volar wrist and hand Details: normal to inspection (with velcro wrist splint in place), normal capillary refill, neuromotor exam normal Details: wrist extension normal, thumb opposition normal and fingers 2-5 ABduction normal, neurosensory exam normal Details: radial nerve sensory function normal, ulnar nerve sensory function normal, median nerve sensory function normal and digital nerve sensory function normal, tendon exam normal, tenderness Location: of the dorsal hand, of the palm, of the thumb, of the 2nd digit, of the 3rd digit, of the 4th digit and of the 5th digit, vascular exam Details: radial pulse present, ulnar pulse present and normal capillary refill and abnormal ROM of finger Details: pain with active ROM and pain with passive ROM Course Vital Signs Temperature 36.5 C 09/03/18 08:31 Pulse 79 09/03/18 08:31 Respiratory Rate 16 09/03/18 08:31 Blood Pressure 133/76 09/03/18 08:31 Pulse Oximetry 98 09/03/18 08:31 Temperature 36.5 C 09/03/18 08:31 Temperature Source Skin 09/03/18 08:31 Pulse 79 09/03/18 08:31 Respiratory Rate 16 09/03/18 08:31 Respiratory Effort Non-Labored 09/03/18 08:31 Blood Pressure 133/76 09/03/18 08:31 Blood Pressure Position Sitting 09/03/18 08:31 Pulse Oximetry 98 09/03/18 08:31 Oxygen Delivery Method Room Air 09/03/18 08:31 Oxygen Flow Rate 0 09/03/18 08:31 Pain Level 10 09/03/18 08:31
[2018-09-03 09:01] VITALS: BP 133/76; PULSE 79; RESP 16; TEMP 36.5; O2SAT 98
== END 2018-09-03 09:00 | disposition home or self-care (01) ==
LOC: ER 10:14
PROVIDERS: Emergency Provider Nurse Practitioner Family; PCP Nurse Practitioner
DX: G56.01 Carpal tunnel syndrome, right upper limb (principal)
CPT/HCPCS: 99283

== ENCOUNTER 2018-12-11 14:44 | Emergency (ER) | payer MEDICAID, SELFPAY ==
[2018-12-11 14:48] VITALS: BP 131/73; PULSE 96; RESP 16; TEMP 36.6; O2SAT 97
--- NOTE | 2018-12-11 15:17 | W.ED.GENAD ---
Discharge Plan Disposition Patient Disposition: HOME Condition: Stable Discharge Details Chief Complaint: FacialProb Clinical Impression: TMJ (temporomandibular joint disorder) Primary Care Provider: Krystin Narayan ED Provider: Ignacia Eugene Home Meds and New Rx's Prescriptions: New naproxen 500 mg tablet 250 mg PO BID 10 Days Qty: 10 RF: 0 cyclobenzaprine 10 mg tablet 10 mg PO HS 14 Days Qty: 14 RF: 0 No Action Mirena 1 EACH intrauterine device 1 ea Intrauterine ONCE Qty: 1 RF: 0 sertraline 50 MG tablet 200 mg PO DAILY RF: 0 Discharge Instructions Instructions: Temporomandibular Disorder (ED) Additional Instructions: Alternate ice and heat to the affected area several times daily for 20 minutes at a time. Take the naproxen and Flexeril as directed. Follow a soft diet while you have jaw pain. Follow-up with your primary care doctor in 1 week for reevaluation. Return immediately to the emergency department any worsening or new concerning symptoms. Discharge Data Discharge Date/Time-TO BE ENTERED AT DEPARTURE: 12/11/18 15:27 Discharge Physician: Ignacia Eugene Medical Decision Making 27yo F w/ complaint of right jaw pain for the past 4 days. Pain is an area of right TMJ. She has pain with chewing, movement of her jaw, talking and palpation. Denies fever, injury, ear pain, sore throat or dental pain. Vitals within normal limits. Patient appears nontoxic. She is speaking in full sentences. She has tenderness to palpation of her right TMJ and obvious pain in her right TMJ when talking but otherwise normal right ear canal/TM, pharynx, and normal dental exam. She has no trismus, submandibular, drooling, lymphadenopathy. She denies relief with ibuprofen or Tylenol. Likely appears consistent with TMJ disorder/strain. Will send home with a prescription for naproxen and Flexeril to take for the next 10-14 days. She is instructed to alternate ice and heat, avoid excessive talking, and follow a soft diet. She is instructed to follow up with the primary care doctor for reevaluation and return here at any time if worse. HPI General Mode of arrival: ambulatory. Date/Time Provider Initiated Documentation: 12/11/18 14:46. Limitations to Documentation: no limitations. Information obtained by: patient. HPI Narrative: Patient is a 27-year-old female who presents to the ED with complaint of right-sided jaw pain for the past 4 days. Patient states the pain is right in front of her ear, and the area of her right TMJ and is worse with chewing, talking. She denies any inner ear pain, sore throat, dental pain, chest pain, shortness of breath or fever. She denies any known injury. Related Data Home Medications Medication Instructions Recorded Confirmed Mirena 1 ea INTRAUTERINE ONCE #1 implant 12/25/17 12/11/18 sertraline 200 mg PO DAILY 08/02/18 12/11/18 cyclobenzaprine 10 mg PO HS 14 Days #14 tab 12/11/18 naproxen 250 mg PO BID 10 Days #10 tab 12/11/18 Previous Rx's Medication Instructions Recorded cyclobenzaprine 10 mg PO HS 14 Days #14 tab 12/11/18 naproxen 250 mg PO BID 10 Days #10 tab 12/11/18 Allergies Allergy/AdvReac Type Severity Reaction Status Date / Time Fish Containing Products AdvReac Mild Nausea Verified 12/11/18 14:53 General Stated Complaint: FacialProb DILSHAD: 4 Review of Systems Review of Systems All systems reviewed & are unremarkable except as noted in HPI and below Constitutional Reports as per HPI, Denies chills and Denies fever(s) Eyes Denies blurry vision ENT Denies dizziness, Denies sore throat and Denies throat swelling Cardiovascular Denies chest pain and Denies dyspnea Respiratory Denies cough and Denies dyspnea Gastrointestinal Denies abdominal pain, Denies diarrhea and Denies vomiting Genitourinary Denies hematuria and Denies dysuria Musculoskeletal Denies back pain, Denies numbness and Reports other (R jaw pain) Integumentary/Breasts Denies lesions and Denies rash Neurologic Denies dizziness, Denies focal weakness and Denies numbness Allergic/Immunologic Denies throat swelling [facility] Medical History Asthma Congenital stenosis of pulmonary valve Depression Surgical History wisdom tooth extraction Family History Mother Depression Brother Depression Father No problems noted. Sister No problems noted. Sister No problems noted. Sister No problems noted. Sister No problems noted. Social History Smoking/Tobacco Use Status: Current every day Tobacco Type: cigarettes Alcohol Intake: never Drug use: Daily Substance use type: marijuana Do you feel safe at home: Yes Do you feel safe in your relationship?: Yes Exam Const General: cooperative and healthy appearing Orientation: alert and awake HENMT Head: normal to inspection Ears: hearing grossly normal bilaterally, external ears normal and TM's normal bilaterally General nose exam: external nose normal Face images: 1. Localized area of tenderness overlying the right TMJ. There is no edema, ecchymosis, erythema, abscess, rash or open wounds Mouth: oral mucosae normal Teeth and gingiva: dentition normal Throat: posterior oropharynx normal Eyes General: appearance normal, both eyes and all related structures Eyelids: eyelids normal Pupils: PERRL EOM: EOM intact bilaterally Neck Neck: normal visual inspection Lymphatic: no lymphadenopathy noted Chest Chest: normal inspection of the chest Resp Effort & Inspection: normal respiratory effort and able to speak in complete sentences Auscultation: clear to auscultation bilaterally Cardio Rate: regular rate Rhythm: regular rhythm GI Inspection: normal to inspection Palpation: soft, not firm, no guarding, no hepatosplenomegaly, no masses and nontender Auscultation: normal bowel sounds Back/Spine/Pelvis Back: no CVA tenderness Skin General skin exam: no rashes or lesions noted Neuro General: alert and awake Cognition: normal cognition Speech: speech normal Gait: normal gait Motor: muscle tone normal throughout Sensory Exam: no sensory deficits noted Extrem General: normal to inspection, full ROM and normal capillary refill Psych Appearance: grossly normal Mental Status: mental status grossly normal Speech and Movement: speech and movement normal Affect: normal affect Thought Process: normal Course Vital Signs Temperature 97.9 F 12/11/18 14:48 Pulse 96 H 12/11/18 14:48 Respiratory Rate 16 12/11/18 14:48 Blood Pressure 131/73 12/11/18 14:48 Pulse Oximetry 97 12/11/18 14:48 Temperature 97.9 F 12/11/18 14:48 Temperature Source Temporal Artery Scan 12/11/18 14:48 Pulse 96 H 12/11/18 14:48 Respiratory Rate 16 12/11/18 14:48 Respiratory Effort 03/19/19 14:52 Blood Pressure 131/73 12/11/18 14:48 Blood Pressure Position Sitting 12/11/18 14:48 Pulse Oximetry 97 12/11/18 14:48 Oxygen Delivery Method Room Air 12/11/18 14:48 Oxygen Flow Rate 0 12/11/18 14:48 Pain Level 8 12/11/18 14:48
[2018-12-11 15:25] VITALS: BP 131/73; PULSE 96; RESP 16; TEMP 36.6; O2SAT 97
== END 2018-12-11 15:27 | disposition home or self-care (01) ==
PROVIDERS: Emergency Provider Physician Assistant; PCP Nurse Practitioner
DX: M26.621 Arthralgia of right temporomandibular joint (principal)
CPT/HCPCS: 99283

== ENCOUNTER 2019-03-18 07:55 | Day surgery (SDC) | payer MEDICAID, SELFPAY ==
[2019-03-18 08:06] VITALS: BP 136/75; PULSE 69; RESP 16; TEMP 35.6; O2SAT 98
[2019-03-18] MEDS: Lactated Ringers 1,000 ML 80 ML IV (08:34)
[2019-03-18] MEDS: ceFAZolin 1 GM/50 ML BAG IVPB (09:00)
--- NOTE | 2019-03-18 09:37 | PDOC.DSDIS_ITS ---
Discharge Plan Disposition Patient Disposition: HOME Condition: Good Discharge Details Reason For Visit: R ECTR Attending Provider: Bart Feliciano Primary Care Provider: Krystin Narayan Home Meds and New Rx's Prescriptions: New hydrocodone-acetaminophen 5-325 mg tablet 1 tab PO Q6H PRN (Reason: pain) Qty: 7 RF: 0 Continued Mirena 1 EACH intrauterine device 1 ea Intrauterine ONCE Qty: 1 RF: 0 lamotrigine 100 mg Tablet 100 mg PO DAILY RF: 0 Discharge Instructions Additional Instructions: Elevate R hand above heart level as much as possible overnite tonite. Wiggle fingers R hand 10 times/hour when awake to prevent swelling. Keep dressings and splint dry and in place for 48 hours. After 48 hours, remove splint and dressings and begin to move R wrist. After you remove the dressings, you can shower or bathe and get the incision wet. Leave the incision uncovered when it is dry and sealed. Use R hand as much as your discomfort allows. Your fingers may stay numb for up to 24 hours due to nerve block I put in to decrease post-op pain. Follow up with in 2 weeks. Stand Alone Forms: Anes.Nerve Block Instructions, DSU Post op Instructions, Jessica Mcmahon (DSU) Referrals: Bart Feliciano MD [ [facility] STAFF PHYSICIAN] - (f/u in 2 weeks.) Equipment/Supplies: Splint Activity:: Activity as Tolerated Remove Dressings/Wound Care:: 48 hours Shower/Bathe:: 48 hours Diet:: As Tolerated Discharge Orders Discharge Orders: Discharge Order (Routine); Ordered 03/18/19 Ordered By: Bart Feliciano DS: Diagnosis Discharge Diagnosis (1) Carpal tunnel syndrome on right: Status: Acute
[2019-03-18 10:06] VITALS: BP 109/61; PULSE 53; RESP 16; TEMP 36; O2SAT 99
--- NOTE | 2019-03-18 13:40 | ROE_ITS ---
DATE OF PROCEDURE: March 18, 2019 PREOPERATIVE DIAGNOSIS: Carpal tunnel syndrome, right. POSTOPERATIVE DIAGNOSIS: Same. PROCEDURE: Endoscopic carpal tunnel release on the right. ANESTHESIA: Local nerve blocks distal to the elbow, supplemented with local infiltration. [employer] SENIOR MANAGER: Walt Aburto CRNA SURGEON: Bart Feliciano M.D. INDICATIONS: This is a 28-year-old white with chronic and persistent symptoms of carpal tunnel syndr ome on the right. She has failed to improve with conservative treatment, including splinting. Nerve conductions confirmed mild carpal tunnel syndrome. Because of failure of conservative treatment to control her numbness and pain, surgery was recommended. The patient wished to undergo the endoscopic technique of carpal tunnel release. Risks and complications of the procedure were explained to the patient in detail preoperatively. PROCEDURE: The patient was taken to the Operating Room on 03/18/19. She was placed supine on the op erating table. Radial ulnar and median nerve blocks were performed distal to the elbow. In addition , a median nerve block was performed at the level of the volar carpal ligament and base of the thenar eminence. The right upper extremity was prepped and draped free in the usual sterile fashion. A pr oximal tourniquet was applied to the upper arm. After exsanguination by elevation for two minutes, t he tourniquet was inflated to 250 mmHg. A transverse incision was made in line with the proximal flexion crease beginning at the flexor carpi radialis tendon and extending to the flexor carpi ulnaris tendon. The incision was carried down to the fascia. The palmaris longus tendon was retracted radially and a distally-based fascial flap was then raised to gain access to the carpal canal. Synovial reflector was then used to free up any soft tissue attachments to the undersurface of the volar carpal ligament. A series of obturators were in serted to make room for the endoscope. The Eliot endoscope blade device was then inserted in the carp al canal. Care was taken to position the endoscope on the ulnar side of the canal against the hook o f the hamate. The endoscope was advanced until the distal edge of the volar carpal ligament was tayler rly visualized. At this point the trigger was depressed, elevating the blade and the elevator blade was then brought out proximally through the incision, transecting the volar carpal ligament. The bairon de was lowered; the endoscope was replaced in the carpal canal and the median nerve was visualized an d seen to fall into the defect in the volar carpal ligament caused by the transection. Littler sciss ors were then used to make a fasciotomy subcutaneously proximal to the incision. The wound was irrig ated with a saline solution. Additional median nerve block was performed under direct vision using a few cc's of 0.5% Marcaine with an epinephrine solution. Subcutaneous veins were cauterized. The sk in edges were approximated with two horizontal mattress sutures of #4-0 Nylon suture material. The w ound was dressed with Xeroform gauze, sterile gauze 4x4's, wrapped with a Kerlix bandage and then wra pped with an LAISHA bandage. A commercial cock-up wrist splint was applied. The tourniquet was release d; there was no breakthrough bleeding to the dressing. The patient was discharged to the recovery ro in good condition. The patient was discharged home from the Day Surgery Unit when fully recovered from her anesthesia. The patient was given instructions to try and elevate her right hand above heart level as much as pos sible overnight tonight. She is encouraged to wiggle her fingers ten times an hour while awake to pr event swelling. She is to keep her dressings and splint intact and dry for 48 hours. After 48 hours she is to remove her splint and dressings and start to move her right wrist. After 48 hours she can shower or bathe and get her incision wet. She is to leave the incision uncovered when it is dry and sealed. She may use her right hand as much as discomfort allows. She will take ibuprofen for mild pain. For breakthrough pain she was given a prescription for Hydrocodone with APAP 5/325, one tablet every six hours, as needed. She will follow-up with me in two weeks.
== END 2019-03-18 10:40 | disposition home or self-care (01) ==
PROVIDERS: PCP Nurse Practitioner; Visit Provider Orthopaedic Surgery
PROC: 01N54ZZ Release Median Nerve, Percutaneous Endoscopic Approach (ICD-10-PCS; CPT 29848; principal; 2019-03-18 09:00)
DX: G56.01 Carpal tunnel syndrome, right upper limb (principal)
CPT/HCPCS: 29848; 81025; J0690; J1885; L3908

== ENCOUNTER 2019-03-29 08:07 | Emergency (ER) | payer MEDICAID, SELFPAY ==
[2019-03-29 08:12] VITALS: BP 122/80; PULSE 75; RESP 16; TEMP 36.3; O2SAT 97
--- NOTE | 2019-03-29 08:14 | W.ED.GENAD ---
Discharge Plan Disposition Patient Disposition: HOME Condition: Fair Discharge Details Chief Complaint: GenMedical Clinical Impression: Post-operative infection Primary Care Provider: Krystin Narayan ED Provider: Griselda Rodriguez Home Meds and New Rx's Prescriptions: New cephalexin [Keflex] 500 mg capsule 500 mg PO QID Qty: 20 RF: 0 Continued Mirena 1 EACH intrauterine device 1 ea Intrauterine ONCE Qty: 1 RF: 0 tramadol 50 mg tablet 50 mg PO Q6H PRNRF: 0 lamotrigine 100 mg Tablet 100 mg PO DAILY RF: 0 hydrocodone-acetaminophen 5-325 mg tablet 1 tab PO Q6H PRN (Reason: pain) Qty: 7 RF: 0 Discharge Instructions Instructions: Cellulitis (ED) Additional Instructions: Encourage rest, ice, elevation. Tylenol and ibuprofen as needed for discomfort. Please take Keflex as prescribed. Even if symptoms improve, please take the entire course. Keep upcoming appointment with Dr. Feliciano. If you develop spreading of the redness, increased pain, discharge, fever/chills or other new/worsening symptoms please seek care urgently once again. Please feel free to call orthopedics with postoperative questions, number listed below. Referrals: Bart Feliciano MD [ [facility] STAFF PHYSICIAN] - Medical Decision Making Patient is a 28-year-old [id number] female presents today with chief complaint of right wrist pain. Patient is 11 days status post carpal tunnel procedure. Has noted in recent days and the pain is been increasing, she is noted increased swelling and erythema at the incision site. She endorses some tingling distal to the incision that is intermittent. States the pain can increase to the point that she has difficulty lifting her daughter. She is been taking anti-inflammatories and following postoperative instructions. Despite this, her pain is increased. On exam, patient's incision is altogether with 2 horizontal mattress stitches with good wound approximation. She does have an area of erythema, warmth and induration. Consulted with Dr. Feliciano advise placing patient on Keflex. Discussed this plan with the patient. I encouraged elevation. Advised Tylenol and/or ibuprofen as needed for discomfort. She is given strict return precautions. She has follow-up appointment with Dr. Feliciano next week, advised that she keep this appointment. Jonathon wrap was applied as the patient is having severe discomfort with any palpation of the incision. Advised to continue with this throughout severe pain persist I did encourage range of motion activities. All of her questions and concerns were addressed and she is in agreement this plan. HPI General Mode of arrival: ambulatory. Date/Time Provider Initiated Documentation: 03/29/19 08:12. Limitations to Documentation: no limitations. Information obtained by: patient and RN notes reviewed. History of Present Illness 28 year old F presents to the emergency department with the chief complaint of right wrist pain postoperatively, described as severe, Quality is described as burning, and is localized to the right and upper extremity. Patient reports no radiation. Patient started experiencing this day(s) and it has been constant. Immobilization improves symptom(s), Movement worsens symptoms (worse with extension) . Patient notes weakness (states pain causes weakness in hand); denies fever/chills. Patient did receive the following treatments prior to arrival, NSAID Related Data Home Medications Medication Instructions Recorded Confirmed Mirena 1 ea INTRAUTERINE ONCE #1 implant 12/25/17 03/18/19 lamotrigine 100 mg PO DAILY 03/14/19 03/18/19 hydrocodone-acetaminophen 1 tab PO Q6H PRN #7 tab 03/18/19 tramadol 50 mg tablet 50 mg PO Q6H PRN 03/20/19 cephalexin [Keflex] 500 mg PO QID #20 cap 03/29/19 Previous Rx's Medication Instructions Recorded hydrocodone-acetaminophen 1 tab PO Q6H PRN #7 tab 03/18/19 cephalexin [Keflex] 500 mg PO QID #20 cap 03/29/19 Allergies Allergy/AdvReac Type Severity Reaction Status Date / Time Fish Containing Products AdvReac Mild Nausea Verified 03/18/19 08:18 General DILSHAD: 4 Review of Systems Constitutional Reports as per HPI, Denies chills and Denies fever(s) Musculoskeletal Reports as per HPI and Reports tingling (just distal to incision) Integumentary/Breasts Reports as per HPI Neurologic Reports as per HPI, Denies sensory deficit and Reports tingling (just distal to incision) PFSH Medical History Asthma Congenital stenosis of pulmonary valve Depression Surgical History wisdom tooth extraction Social History Smoking/Tobacco Use Status: Current every day Tobacco Type: cigarettes Alcohol Intake: current Alcohol Intake frequency: holidays/special occasions only Drug use: Daily Substance use type: marijuana Details: LAST USE: 03/17/19 Household members: children Do you feel safe at home: Yes Do you feel safe in your relationship?: Yes Exam Const General: cooperative, healthy appearing, comfortable, no acute distress and well developed Nutritional Appearance: average body habitus and well nourished Orientation: alert and awake Resp Effort & Inspection: normal respiratory effort, able to speak in complete sentences and no respiratory distress Cardio Rate: regular rate Rhythm: regular rhythm Skin General skin exam: erythema (localized closely around incision), hypertrophy (patient has swelling and induration at incision site) and other (incision closed with horizontal matress, wound edges well approximated) Neuro General: alert and awake Cognition: normal cognition Speech: speech normal Gait: normal gait Sensory Exam: no sensory deficits noted Extrem Right upper extremity: full ROM, normal capillary refill, no joint enlargement and wrist Details: normal ROM (full ROM although jimena with extension), warmth (over incision) and normal vascular exam; inspection abnormal (as above); abnormal to inspection (incision as above) Psych Appearance: grossly normal and well kempt Mental Status: mental status grossly normal Speech and Movement: speech and movement normal
[2019-03-29 08:16] VITALS: RESP 16
--- NOTE | 2019-03-29 08:24 | ED.GENADUL_ITS ---
Discharge Plan Disposition Patient Disposition: HOME Condition: Fair Discharge Details Chief Complaint: GenMedical Clinical Impression: Post-operative infection Primary Care Provider: Krystin Narayan ED Provider: Griselda Rodriguez Home Meds and New Rx's Prescriptions: New cephalexin [Keflex] 500 mg capsule 500 mg PO QID Qty: 20 RF: 0 Continued Mirena 1 EACH intrauterine device 1 ea Intrauterine ONCE Qty: 1 RF: 0 tramadol 50 mg tablet 50 mg PO Q6H PRNRF: 0 lamotrigine 100 mg Tablet 100 mg PO DAILY RF: 0 hydrocodone-acetaminophen 5-325 mg tablet 1 tab PO Q6H PRN (Reason: pain) Qty: 7 RF: 0 Discharge Instructions Instructions: Cellulitis (ED) Additional Instructions: Encourage rest, ice, elevation. Tylenol and ibuprofen as needed for discomfort. Please take Keflex as prescribed. Even if symptoms improve, please take the entire course. Keep upcoming appointment with Dr. Feliciano. If you develop spreading of the redness, increased pain, discharge, fever/chills or other new/worsening symptoms please seek care urgently once again. Please feel free to call orthopedics with postoperative questions, number listed below. Referrals: Bart Feliciano MD [ [facility] - Medical Decision Making Patient is a 28-year-old [id number] female presents today with chief complaint of right wrist pain. Patient is 11 days status post carpal tunnel procedure. Has noted in recent days and the pain is been increasing, she is noted increased swelling and erythema at the incision site. She endorses some tingling distal to the incision that is intermittent. States the pain can increase to the point that she has difficulty lifting her daughter. She is been taking anti-inflammatories and following postoperative instructions. Despite this, her pain is increased. On exam, patient's incision is altogether with 2 horizontal mattress stitches with good wound approximation. She does have an area of erythema, warmth and induration. Consulted with Dr. Feliciano advise placing patient on Keflex. Discussed this plan with the patient. I encouraged elevation. Advised Tylenol and/or ibuprofen as needed for discomfort. She is given strict return precautions. She has follow- up appointment with Dr. Feliciano next week, advised that she keep this appointment. Jonathon wrap was applied as the patient is having severe discomfort with any palpation of the incision. Advised to continue with this throughout severe pain persist I did encourage range of motion activities. All of her questions and concerns were addressed and she is in agreement this plan. HPI General Mode of arrival: ambulatory . Date/Time Provider Initiated Documentation: 03/29/19 08:12 . Limitations to Documentation: no limitations . Information obtained by: patient and RN notes reviewed . History of Present Illness 28 year old F presents to the emergency department with the chief complaint of right wrist pain postoperatively, described as severe, Quality is described as burning, and is localized to the right and upper extremity. Patient reports no radiation. Patient started experiencing this day(s) and it has been constant. Immobilization improves symptom(s), Movement worsens symptoms (worse with extension) . Patient notes weakness (states pain causes weakness in hand); denies fever/chills. Patient did receive the following treatments prior to arrival, NSAID Related Data Home Medications Medication Instructions Recorded Confirmed Mirena 1 ea INTRAUTERINE ONCE #1 implant 12/25/17 03/18/19 lamotrigine 100 mg PO DAILY 03/14/19 03/18/19 hydrocodone-acetaminophen 1 tab PO Q6H PRN #7 tab 03/18/19 tramadol 50 mg tablet 50 mg PO Q6H PRN 03/20/19 cephalexin [Keflex] 500 mg PO QID #20 cap 03/29/19 Previous Rx's Medication Instructions Recorded hydrocodone-acetaminophen 1 tab PO Q6H PRN #7 tab 03/18/19 cephalexin [Keflex] 500 mg PO QID #20 cap 03/29/19 Allergies Allergy/AdvReac Type Severity Reaction Status Date / Time Fish Containing Products AdvReac Mild Nausea Verified 03/18/19 08:18 General DILSHAD: 4 Review of Systems Constitutional Reports as per HPI, Denies chills and Denies fever(s) Musculoskeletal Reports as per HPI and Reports tingling (just distal to incision) Integumentary/Breasts Reports as per HPI Neurologic Reports as per HPI, Denies sensory deficit and Reports tingling (just distal to incision) PFSH Medical History Asthma Congenital stenosis of pulmonary valve Depression Surgical History wisdom tooth extraction Social History Smoking/Tobacco Use Status: Current every day Tobacco Type: cigarettes Alcohol Intake: current Alcohol Intake frequency: holidays/special occasions only Drug use: Daily Substance use type: marijuana Details: LAST USE: 03/17/19 Household members: children Do you feel safe at home: Yes Do you feel safe in your relationship?: Yes Exam Const General: cooperative, healthy appearing, comfortable, no acute distress and well developed Nutritional Appearance: average body habitus and well nourished Orientation: alert and awake Resp Effort & Inspection: normal respiratory effort, able to speak in complete sentences and no respiratory distress Cardio Rate: regular rate Rhythm: regular rhythm Skin General skin exam: erythema (localized closely around incision), hypertrophy (patient has swelling and induration at incision site) and other (incision closed with horizontal matress, wound edges well approximated) Neuro General: alert and awake Cognition: normal cognition Speech: speech normal Gait: normal gait Sensory Exam: no sensory deficits noted Extrem Right upper extremity: full ROM, normal capillary refill, no joint enlargement and wrist Details: normal ROM (full ROM although jimena with extension), warmth (over incision) and normal vascular exam; inspection abnormal (as above); abnormal to inspection (incision as above) Psych Appearance: grossly normal and well kempt Mental Status: mental status grossly normal Speech and Movement: speech and movement normal
== END 2019-03-29 08:39 | disposition home or self-care (01) ==
PROVIDERS: Emergency Provider Physician Assistant; PCP Nurse Practitioner
DX: M25.531 Pain in right wrist (principal); G89.18 Other acute postprocedural pain; R22.31 Localized swelling, mass and lump, right upper limb; T81.49XA Infection following a procedure, other surgical site, initial encounter; Y83.4 Other reconstructive surgery as the cause of abnormal reaction of the patient, or of later complication, without mention of misadventure at the time of the procedure
CPT/HCPCS: 99283

== ENCOUNTER 2019-06-18 09:51 | Emergency (ER) | payer MEDICAID, SELFPAY ==
[2019-06-18 09:54] VITALS: BP 117/61; PULSE 76; RESP 20; TEMP 36.6; O2SAT 96
--- NOTE | 2019-06-18 10:02 | ED.GENADUL_ITS ---
Discharge Plan Disposition Patient Disposition: HOME Condition: Stable Discharge Details Chief Complaint: RespSymp Clinical Impression: URI (upper respiratory infection), Medication refill, History of asthma Primary Care Provider: Krystin Narayan ED Provider: Ignacia Eugene Home Meds and New Rx's Prescriptions: Continued Mirena 1 EACH intrauterine device 1 ea Intrauterine ONCE Qty: 1 RF: 0 lamotrigine 100 mg Tablet 100 mg PO DAILY RF: 0 Discharge Instructions Instructions: Asthma (ED), Upper Respiratory Infection (ED) Additional Instructions: Use the albuterol inhaler as needed and directed. Take [id number] cough and cold medication as needed and directed. Follow-up with your primary care doctor next week for reevaluation. Return immediately to the emergency department if you develop any worsening or new concerning symptoms. Discharge Data Discharge Date/Time-TO BE ENTERED AT DEPARTURE: 06/18/19 10:20 Discharge Physician: Ignacia Eugene Medical Decision Making 28-year-old female with history of asthma and depression who presents with cough with intermittent wheezing over the past few days. States she feels better present and mainly came here for a new inhaler. Denies fever or chest pain. Vitals within normal limits. Lungs clear to auscultation. No signs of respiratory distress. As she has no fever chest pain or shortness of breath at this time, do not see an indication for chest x-ray and patient agreeable. Do not see any indication for steroids at this time. Patient was given a new inhaler for home. She was advised to follow-up with a primary care doctor for reevaluation and to return her anytime if worse. Medical Records Medical records reviewed: Yes I reviewed the patient's medical records. HPI General Mode of arrival: ambulatory . Date/Time Provider Initiated Documentation: 06/18/19 09:58 . Limitations to Documentation: no limitations . Information obtained by: patient . HPI Narrative: Patient is a 28-year-old female who presents to the ED with complaint of cough and intermittent wheezing consistent with her asthma. She states she feels fine at present but needs a new inhaler. She denies fever, chest pain. She denies any history of intubations. She states she mainly came here for a new inhaler prescription. Related Data Home Medications Medication Instructions Recorded Confirmed Mirena 1 ea INTRAUTERINE ONCE #1 implant 12/25/17 06/18/19 lamotrigine 100 mg PO DAILY 03/14/19 06/18/19 Allergies Allergy/AdvReac Type Severity Reaction Status Date / Time Fish Containing Products AdvReac Mild Nausea Verified 04/03/19 11:34 General Stated Complaint: RespSymp DILSHAD: 3 Review of Systems Review of Systems ROS Unobtainable: All systems reviewed & are unremarkable except as noted in HPI and below Constitutional Constitutional: Reports as per HPI, Denies chills and Denies fever(s) Eyes Eyes: Denies blurry vision ENT Ears, Nose, Mouth, and Throat: Denies dizziness, Denies sore throat and Denies throat swelling Cardiovascular Cardiovascular: Denies chest pain and Denies dyspnea Respiratory Respiratory: Reports cough, Denies dyspnea and Reports wheezing Gastrointestinal Gastrointestinal: Denies abdominal pain, Denies diarrhea and Denies vomiting Genitourinary Genitourinary: Denies hematuria and Denies dysuria Musculoskeletal Musculoskeletal: Denies back pain and Denies numbness Integumentary/Breasts Skin/Breast: Denies lesions and Denies rash Neurologic Neurologic: Denies dizziness, Denies focal weakness and Denies numbness Allergic/Immunologic Allergic/Immunologic: Denies throat swelling and Reports wheezing [facility] Medical History Asthma Uses Inhaler prn. Triggers include: weather change, exercise, seasonal allergies. 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 Surgical History wisdom tooth extraction Family History Mother Depression Brother Depression Father No problems noted. Sister No problems noted. Sister No problems noted. Sister No problems noted. Sister No problems noted. Social History Smoking/Tobacco Use Status: Current every day Tobacco Type: cigarettes Alcohol Intake: current Alcohol Intake frequency: holidays/special occasions only Drug use: Daily Substance use type: marijuana Details: LAST USE: 03/17/19 Household members: children Do you feel safe at home: Yes Do you feel safe in your relationship?: Yes Exam Const General: cooperative and healthy appearing Orientation: alert and awake HENMT Head: normal to inspection Ears: hearing grossly normal bilaterally, external ears normal and TM's normal bilaterally General nose exam: external nose normal Face and sinus: normal facial exam Mouth: oral mucosae normal Teeth and gingiva: dentition normal Throat: posterior oropharynx normal Eyes General: appearance normal, both eyes and all related structures Eyelids: eyelids normal Pupils: PERRL EOM: EOM intact bilaterally Neck Neck: normal visual inspection Lymphatic: no lymphadenopathy noted Chest Chest: normal inspection of the chest Resp Effort & Inspection: normal respiratory effort and able to speak in complete sentences Auscultation: clear to auscultation bilaterally Cardio Rate: regular rate Rhythm: regular rhythm GI Inspection: normal to inspection Skin General skin exam: no rashes or lesions noted Neuro General: alert and awake Cognition: normal cognition Speech: speech normal Gait: normal gait Motor: muscle tone normal throughout Sensory Exam: no sensory deficits noted Extrem General: normal to inspection, full ROM and normal capillary refill Psych Appearance: grossly normal Mental Status: mental status grossly normal Speech and Movement: speech and movement normal Affect: normal affect Thought Process: normal Course Vital Signs Vital signs: Vital Signs Temperature 97.9 F 06/18/19 09:54 Pulse 76 06/18/19 09:54 Respiratory Rate 20 06/18/19 09:54 Blood Pressure 117/61 06/18/19 09:54 Pulse Oximetry 96 06/18/19 09:54 Temperature 97.9 F 06/18/19 09:54 Temperature Source Skin 06/18/19 09:54 Pulse 76 06/18/19 09:54 Respiratory Rate 20 06/18/19 09:54 Blood Pressure 117/61 06/18/19 09:54 Blood Pressure Position Sitting 06/18/19 09:54 Pulse Oximetry 96 06/18/19 09:54 Oxygen Delivery Method Room Air 06/18/19 09:54 Oxygen Flow Rate 0 06/18/19 09:54 Pain Level 0 06/18/19 09:54
[2019-06-18] MEDS: Albuterol HFA 8 GM 60 PUFF INH IH (10:19)
[2019-06-18 10:22] VITALS: BP 117/61; PULSE 76; RESP 20; TEMP 36.6; O2SAT 96
== END 2019-06-18 10:20 | disposition home or self-care (01) ==
PROVIDERS: Emergency Provider Physician Assistant; PCP Nurse Practitioner
DX: J06.9 Acute upper respiratory infection, unspecified (principal); J45.909 Unspecified asthma, uncomplicated
CPT/HCPCS: 99283

== ENCOUNTER 2019-06-25 07:41 | Emergency (ER) | payer MEDICAID, SELFPAY ==
[2019-06-25 07:46] VITALS: BP 126/73; PULSE 96; RESP 16; TEMP 37; O2SAT 98
--- NOTE | 2019-06-25 08:17 | W.ED.GENAD ---
Discharge Plan Disposition Patient Disposition: HOME Condition: Good Discharge Details Chief Complaint: EyeProblem Clinical Impression: Conjunctivitis Primary Care Provider: Krystin Narayan ED Provider: Alberta Petersen Home Meds and New Rx's Prescriptions: New erythromycin 5 mg/gram (0.5 %) ointment See Rx Instructions .ROUTE .COMPLEX Qty: 3.5 RF: 0 No Action Mirena 1 EACH intrauterine device 1 ea Intrauterine ONCE Qty: 1 RF: 0 lamotrigine 100 mg Tablet 100 mg PO DAILY RF: 0 Discharge Instructions Instructions: Conjunctivitis (ED) Additional Instructions: Wash eyes in the morning with warm water to clean away drainage. Cool compresses for comfort. Wash hands frequently to avoid transmission. Use antibiotic ointment as discussed every 4 hours while awake. If not improving in the next 3 days have reevaluation with [facility] [employer] content marketing or [facility]. Return for any worsening, concerns or alarming symptoms sooner if needed Stand Alone Forms: Work Release Medical Decision Making Very pleasant 28-year-old woman presents for concern of pinkeye. Daughter has pinkeye at home and is requiring antibiotics. Patient presents for concern of antibiotic as I has been draining for the last 2 days, was crusted shut this morning. She denies any injury or trauma to the eye. Does not wear contacts. Patient offered more significant testing including fluorescein staining however she declines at this time would just like antibiotic treatment and if not improved have reevaluation. Patient has no other associated upper respiratory symptoms. Patient denies any significant vision change. Visual acuity 20/20 bilaterally Prior to discharge, my usual and customary return precautions were reviewed with the patient - this included follow-up instructions and reasons to return to the Emergency Department if conditions worsens, does not improve as expected, or other new concerns arise. HPI General Date/Time Provider Initiated Documentation: 06/25/19 08:05. HPI Narrative: 28-year-old patient presents for complaints of pink eye in the right eye. She reports her daughter has pinkeye this week and yesterday she began with irritation and discharge from the eye. Patient reports this morning I was fully crusted closed. Patient denies any pain from the eye. Denies any injury or trauma. Patient reports no significant vision changes, blurred vision, double vision, spots, flashes or floaters. No headache or dizziness associated. Patient reports a mild cough but has asthma reports this is typical of change of season. Denies any other associated URI complaints. Related Data Home Medications Medication Instructions Recorded Confirmed Mirena 1 ea INTRAUTERINE ONCE #1 implant 12/25/17 06/25/19 lamotrigine 100 mg PO DAILY 03/14/19 06/25/19 erythromycin See Rx Instructions .ROUTE 06/25/19 .COMPLEX #3.5 gm Previous Rx's Medication Instructions Recorded erythromycin See Rx Instructions .ROUTE 06/25/19 .COMPLEX #3.5 gm Allergies Allergy/AdvReac Type Severity Reaction Status Date / Time Fish Containing Products AdvReac Mild Nausea Verified 06/25/19 07:50 General Stated Complaint: EyeProblem DILSHAD: 4 Review of Systems Review of Systems ROS Unobtainable: All systems reviewed & are unremarkable except as noted in HPI and below Constitutional Constitutional: Denies chills, Denies fever(s), Denies headache(s) and Denies night sweats Eyes Eyes: Denies blurry vision, Denies change in vision, Reports eye discharge, Reports irritation, Denies loss of vision, Denies eye pain and Denies photophobia ENT Ears, Nose, Mouth, and Throat: Denies ear discharge, Denies otalgia, Denies headache(s), Denies nasal congestion, Denies nasal discharge, Denies post nasal drip, Denies sinus pain and Denies sore throat Neurologic Neurologic: Denies headache(s) and Denies loss of vision [facility] Medical History Asthma Uses Inhaler prn. Triggers include: weather change, exercise, seasonal allergies. 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 Surgical History wisdom tooth extraction Social History Smoking/Tobacco Use Status: Current every day Tobacco Type: cigarettes Alcohol Intake: current Alcohol Intake frequency: a few times a month Drug use: Daily Substance use type: marijuana Details: LAST USE: 03/17/19 Household members: children Do you feel safe at home: Yes Do you feel safe in your relationship?: Yes Exam Narrative Exam Narrative: CONST: Healthy appearing patient, in no acute distress. Well hydrated. Alert and alert. HENMT: Head nomocephalic, normal to inspection. Atraumatic. Hearing grossly normal. EYES: General normal appearance. Alignment normal. Mild right eyelid edema. Conjunctival injection noted, discharge in the medial canthus noted. Pupil is equal round and reactive. Extraocular movements intact without pain. NECK: Normal visual inspection. FROM. Trachea midline. No Midline tenderness. Cervical lymphadenopathy present on the right MUSCULOSKELETAL: Normal Gait. FROM of all extremities. SKIN: Normal. Dry. No rashes. NEURO: Alert and awake. Speech clear. PSYCH: Normal affect. Cooperative. Course Vital Signs Vital signs: Vital Signs Temperature 37 C 06/25/19 07:46 Pulse 96 H 06/25/19 07:46 Respiratory Rate 16 06/25/19 07:46 Blood Pressure 126/73 06/25/19 07:46 Pulse Oximetry 98 06/25/19 07:46 Temperature 37 C 06/25/19 07:46 Temperature Source Skin 06/25/19 07:46 Pulse 96 H 06/25/19 07:46 Respiratory Rate 16 06/25/19 07:46 Respiratory Effort Non-Labored 06/25/19 07:48 Blood Pressure 126/73 06/25/19 07:46 Blood Pressure Position Sitting 06/25/19 07:46 Pulse Oximetry 98 06/25/19 07:46 Oxygen Delivery Method Room Air 06/25/19 07:46 Oxygen Flow Rate 0 06/25/19 07:46 Pain Level 2 06/25/19 07:46
[2019-06-25 08:19] VITALS: BP 126/73; PULSE 96; RESP 16; TEMP 37; O2SAT 98
== END 2019-06-25 08:19 | disposition home or self-care (01) ==
PROVIDERS: Emergency Provider Physician Assistant; PCP Nurse Practitioner
DX: H10.211 Acute toxic conjunctivitis, right eye (principal)
CPT/HCPCS: 99283

== ENCOUNTER 2019-09-19 14:50 | Emergency (ER) | payer MEDICAID, SELFPAY ==
[2019-09-19 14:52] VITALS: BP 135/67; PULSE 120; RESP 18; TEMP 36.3; O2SAT 100
--- NOTE | 2019-09-19 15:00 | ED.GENADUL_ITS ---
Discharge Plan Disposition Patient Disposition: HOME Condition: Stable Discharge Details Chief Complaint: Sorethroat Clinical Impression: Strep pharyngitis Primary Care Provider: Krystin Narayan ED Provider: Alberta Petersen Home Meds and New Rx's Prescriptions: New penicillin V potassium 500 mg tablet 500 mg PO BID Qty: 20 RF: 0 Discharge Instructions Instructions: Upper Respiratory Infection (ED) Additional Instructions: Drink plenty of fluids. Rest activities as tolerated. Use antibiotic as prescribed. Motrin or Tylenol for aches and soreness if needed. Consider warm salt water gargles, popsicles, ice cream for comfort. No work for the next 2 days. Recheck with PCP if not improving the next 3 to 5 days. Return for any worsening or concerns sooner if needed. Stand Alone Forms: Work Release Discharge Data Discharge Date/Time-TO BE ENTERED AT DEPARTURE: 09/19/19 15:20 Medical Decision Making Is a 28-year-old patient who presents for complaints of sore throat for the last 24 hours. Patient concerned primarily with the possibility of strep. Patient does have a positive strep [id number] test today. On exam patient does have obvious pharyngeal erythema consistent with strep and anterior cervical lymphadenopathy. Patient has no voice change or trismus. Patient does report mild abdominal pain noted earlier today which has since resolved. At this time has benign abdominal exam. Patient did report mild nausea but no active vomiting. Likely symptoms are attributed to her strep pharyngitis. Patient be treated appropriately with antibiotics counseled regarding alarming signs and symptoms as well as conservative treatments. Patient agrees with plan of care. The patient was stable and requested discharge. Prior to discharge, my usual and customary return precautions were reviewed with the patient - this included follow-up instructions and reasons to return to the Emergency Department if conditions worsens, does not improve as expected, or other new concerns arise. HPI General Date/Time Provider Initiated Documentation: 09/19/19 14:59 . HPI Narrative: There is a 28-year-old patient who presents for complaints of sore throat. Patient with onset of sore throat last night. Patient denies voice change or trismus. Patient reports painful swallowing. Patient reports no significant nasal congestion, mild ear pain present. Patient reports very mild cough with no associated difficulty breathing or shortness of breath. Patient is an asthmatic but denies any asthma related symptoms at this time. Patient denies vomiting but does admit to mild stomach upset and nausea. Patient reports abdominal pain earlier today which is since resolved. Patient denies any urinary urgency, frequency or dysuria. Patient does report mild soft stools but no associated diarrhea. Patient is able to eat and drink. Related Data Home Medications Medication Instructions Recorded Confirmed penicillin V potassium 500 mg PO BID #20 tab 09/19/19 Previous Rx's Medication Instructions Recorded penicillin V potassium 500 mg PO BID #20 tab 09/19/19 Allergies Allergy/AdvReac Type Severity Reaction Status Date / Time Fish Containing Products AdvReac Mild Nausea Verified 09/19/19 14:54 General Stated Complaint: Sorethroat DILSHAD: 4 Review of Systems All systems reviewed & are unremarkable except as noted in HPI and below Constitutional Constitutional: Denies fatigue, Denies fever(s), Reports headache(s) and Reports malaise ENT Ears, Nose, Mouth, and Throat: Denies ear discharge, Reports otalgia, Reports headache(s), Denies sinus pain, Denies sinus pressure, Reports sore throat and Denies throat swelling Cardiovascular Cardiovascular: Denies dyspnea and Denies dyspnea on exertion Respiratory Respiratory: Reports cough (Mild), Denies pain with cough, Denies dyspnea, Denies dyspnea on exertion and Denies wheezing Gastrointestinal Gastrointestinal: Reports abdominal pain (Since resolved), Reports nausea (Since resolved) and Denies vomiting Neurologic Neurologic: Reports headache(s) Endocrine Endocrine: Denies fatigue Allergic/Immunologic Allergic/Immunologic: Denies throat swelling and Denies wheezing [facility] Social History Smoking/Tobacco Use Status: Current every day Tobacco Type: cigarettes Alcohol Intake: current Alcohol Intake frequency: a few times a month Drug use: Daily Substance use type: marijuana Details: LAST USE: 03/17/19 Household members: children Do you feel safe at home: Yes Do you feel safe in your relationship?: Yes Exam Narrative Exam Narrative: CONST: Healthy appearing patient, in no acute distress. Well hydrated. Alert and alert. HENMT: Head nomocephalic, normal to inspection. Atraumatic. Hearing grossly normal. TMs appear normal bilaterally. Pharyngeal erythema with mild strawberry palate. No exudates. No significant tonsillar swelling. EYES: General normal appearance. Alignment normal. Eyelids normal. Conjunctiva normal. NECK: Normal visual inspection. FROM. Trachea midline. No Midline tenderness. Anterior cervical chain lymphadenopathy present. No posterior cervical lymphadenopathy CHEST: Normal insepection of the chest. RESP: Normal respiratory effort. Speaking full sentences. No cough. No audible wheezing. No retractions. Breath sounds clear and equal bilaterally. No wheezing Course Vital Signs Vital signs: Vital Signs Temperature 36.3 C L 09/19/19 14:52 Pulse 120 H 09/19/19 14:52 Respiratory Rate 18 09/19/19 14:52 Blood Pressure 135/67 09/19/19 14:52 Pulse Oximetry 100 09/19/19 14:52 Temperature 36.3 C L 09/19/19 14:52 Temperature Source Skin 09/19/19 14:52 Pulse 120 H 09/19/19 14:52 Respiratory Rate 18 09/19/19 14:52 Respiratory Effort 09/19/19 14:55 Blood Pressure 135/67 09/19/19 14:52 Blood Pressure Position Sitting 09/19/19 14:52 Pulse Oximetry 100 09/19/19 14:52 Oxygen Delivery Method Room Air 09/19/19 14:52 Oxygen Flow Rate 0 09/19/19 14:52 Pain Level 10 09/19/19 14:52
[2019-09-19 15:23] VITALS: PULSE 96; RESP 16
[2019-09-19] MEDS: Acetaminophen 500 MG TAB 1000 MG PO (15:24)
== END 2019-09-19 15:20 | disposition home or self-care (01) ==
PROVIDERS: Emergency Provider Physician Assistant; PCP Nurse Practitioner
DX: J02.0 Streptococcal pharyngitis (principal); R11.0 Nausea; H92.03 Otalgia, bilateral; F17.210 Nicotine dependence, cigarettes, uncomplicated
CPT/HCPCS: 87880; 99283

== ENCOUNTER 2019-10-02 11:22 | Emergency (ER) | payer MEDICAID, SELFPAY ==
[2019-10-02 11:37] VITALS: BP 113/66; PULSE 76; RESP 14; TEMP 36.5; O2SAT 100
[2019-10-02 12:27] VITALS: TEMP 37.3
--- NOTE | 2019-10-02 12:27 | ED.GENADUL_ITS ---
Discharge Plan Disposition Patient Disposition: HOME Condition: Good Discharge Details Chief Complaint: Sorethroat Clinical Impression: Viral respiratory illness Primary Care Provider: Krystin Narayan ED Provider: Meet Mancia Home Meds and New Rx's Prescriptions: No Action No Known Home Meds RF: 0 Discharge Instructions Instructions: Viral Syndrome (ED) Additional Instructions: Rest, fluids, Motrin/Tylenol for pain. Follow up with your doctor next week if not better. Return to ED for difficulty breathing, unable to swallow, vomiting, mental status changes. Referrals: Krystin Narayan [Primary Care Provider] - Medical Decision Making Flu swab done from triage and negative. Patient with some oropharyngeal erythema but no significant edema or exudate. Recently treated for strep. Doubt recurrence. Likely viral illness. Discussed with patient. Discharged home to follow-up with primary care in 1 to 2 weeks if not better. Return to ED for increasing pain, difficulty breathing, inability to swallow, mental status changes, vomiting, other concerns. HPI General Mode of arrival: ambulatory . Date/Time Provider Initiated Documentation: 10/02/19 12:24 . Limitations to Documentation: no limitations . Information obtained by: patient, RN notes reviewed and old records reviewed . HPI Narrative: Patient presents with complaint of sore throat and body aches. Patient seen here the day after [place] for sore throat and diagnosed with strep pharyngitis. She was treated and has completed the antibiotic. She did report that she felt better. Subsequently in the last 2436 hrs. has developed body aches and sore throat again. Denies fevers or chills. Denies headache or earache. No cough or shortness of breath. No vomiting or diarrhea. Related Data Home Medications Medication Instructions Recorded Confirmed Unknown [No Known Home Meds] 10/02/19 10/02/19 Allergies Allergy/AdvReac Type Severity Reaction Status Date / Time Fish Containing Products AdvReac Mild Nausea Verified 10/02/19 11:43 General Stated Complaint: Sorethroat DILSHAD: 3 Review of Systems Narrative: As documented in HPI otherwise negative as below. Const: no fever, chills, weakness Resp: no cough, SOB, pleuritic pain CV: no CP, diaphoresis, edema, syncope GI: no abdominal pain, nausea, vomiting, diarrhea Neuro: no headache, numbness, focal weakness, confusion [facility] Medical History Asthma Uses Inhaler prn. Triggers include: weather change, exercise, seasonal allergies. 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 Surgical History wisdom tooth extraction Social History Smoking/Tobacco Use Status: Current every day Tobacco Type: cigarettes Alcohol Intake: current Alcohol Intake frequency: a few times a month Drug use: Daily Substance use type: marijuana Details: LAST USE: 03/17/19 Household members: children Do you feel safe at home: Yes Do you feel safe in your relationship?: Yes Exam Narrative Exam Narrative: Vitals: Afebrile with normal vitals and room air pulse oximetry. Const: WDWN female in NAD. HEENT: NC/AT. Normal facial exam. No nasal discharge. TMs clear bilaterally. Oropharynx with mild erythema but no swelling, exudate, ulcers. Eyes: Normal conjunctiva and sclera. Neck: Supple. Trachea midline. No adenopathy. Lungs: Normal respiratory effort. Lungs are clear. Cor: RRR without murmur/gallop. Neuro: A+O x 3. CN grossly in tact. Good strength and no focal deficit. Skin: Warm and dry without rash. Course Vital Signs Vital signs: Vital Signs Temperature 97.7 F 10/02/19 11:37 Pulse 76 10/02/19 11:37 Respiratory Rate 14 10/02/19 11:37 Blood Pressure 113/66 10/02/19 11:37 Pulse Oximetry 100 10/02/19 11:37 Temperature 97.7 F 10/02/19 11:37 Temperature Source Temporal Artery Scan 10/02/19 11:37 Pulse 76 10/02/19 11:37 Respiratory Rate 14 10/02/19 11:37 Respiratory Effort Non-Labored 10/02/19 11:41 Blood Pressure 113/66 10/02/19 11:37 Blood Pressure Position Sitting 10/02/19 11:37 Pulse Oximetry 100 10/02/19 11:37 Oxygen Delivery Method Room Air 10/02/19 11:37 Oxygen Flow Rate 0 10/02/19 11:37 Pain Level 7 10/02/19 11:37 Lab/Test Results Lab/Test Results: 10/02/19 11:44 Nasopharynx Influenza Types A,B Antigen - Final
== END 2019-10-02 12:32 | disposition home or self-care (01) ==
PROVIDERS: Emergency Provider Emergency Medicine; PCP Nurse Practitioner
DX: R51 Headache (principal); M79.10 Myalgia, unspecified site; B34.9 Viral infection, unspecified
CPT/HCPCS: 87449; 99282; 99283

== ENCOUNTER 2019-10-21 09:51 | Outpatient (CLI) | payer MEDICAID, SELFPAY ==
[2019-10-21 10:28] LABS: Abs Immature Grans 0.01 k/cumm (0.0-0.09); Absolute Basophil Count 0.03 k/cumm (0.0-0.2); Absolute Eosinophil Count 0.03 k/cumm (0.0-0.7); Absolute Lymphocyte Count 1.76 k/cumm (1.2-3.4); Absolute Monocyte Count 0.35 k/cumm (0.11-0.7); Basophils % 0.5; Eosinophils % 0.5; HCT 40.1 % (36.0-46.0); HGB 14.3 g/dL (12.0-15.5); Immature Grans % 0.2 %; Lymphocytes % 27.2; Mean Corp. HGB Concentration 35.7 g/dL (32.0-36.0); Mean Corpuscular Hemoglobin 32.9 pg (27.0-33.0); Mean Corpuscular Volume 92.2 fL (80-95); Mean Platelet Volume 10.4 fL (8.0-11.0); Monocytes % 5.4; Neutrophils % 66.2; Platelet Count 232 x1000/uL (130-400); RBC 4.35 m/cumm (4.00-5.20); White Blood Cell Count 6.48 k/cumm (4.4-10.8)
[2019-10-21 11:07] LABS: TSH 0.86 uIU/mL (0.36-3.74)
== END 2019-10-21 10:11 ==
PROVIDERS: PCP Nurse Practitioner; Visit Provider Nurse Practitioner Family
DX: F34.1 Dysthymic disorder (principal); Z79.899 Other long term (current) drug therapy; R53.83 Other fatigue
CPT/HCPCS: 36415; 84443; 85025

== ENCOUNTER 2019-12-06 08:03 | Emergency (ER) | payer MEDICAID, SELFPAY ==
[2019-12-06 08:09] VITALS: BP 126/79; PULSE 71; RESP 16; TEMP 36.8; O2SAT 98
--- NOTE | 2019-12-06 08:27 | ED.GENADUL_ITS ---
Discharge Plan Disposition Patient Disposition: HOME Condition: Stable Discharge Details Chief Complaint: GenMedical Clinical Impression: Nausea, Dizziness Primary Care Provider: Krystin Narayan ED Provider: Kimberly Strange Home Meds and New Rx's Prescriptions: New ondansetron HCl [Zofran] 4 mg tablet 4 mg PO Q8H PRN (Reason: nausea and vomiting) Qty: 7 RF: 0 meclizine [Motion Sickness (meclizine)] 25 mg tablet 25 mg PO BID PRN (Reason: dizziness) Qty: 14 RF: 0 No Action No Known Home Meds RF: 0 Discharge Instructions Instructions: Acute Nausea and Vomiting (ED), Dizziness (ED) Additional Instructions: Follow up with primary care provider in 3-5 days. Return to ED sooner if any worsening or concerns. Increase oral fluids. Please take Tylenol or Ibuprofen with food every 4-6 hours as needed for pain and swelling. Referrals: Krystin Narayan [Primary Care Provider] - Medical Decision Making 8-year-old female presents with dizziness and nausea associated with headache for the last 3 days. Patient states that she feels like she is on a plane. She denies any recent head trauma no vomiting no diarrhea no abdominal pain. Denies dysuria. Urine obtained, negative. UA WNL. Patient received meclizine 25 mg and Zofran p.o. 4 mg which improved her symptoms. Patient discharged with prescriptions instructed to increase oral fluids and return for any worsening symptoms. Verbalized understanding. Patient exited department with steady gait remained hemodynamically stable throughout stay. Differential diagnosis includes vertigo, M?ni?re's, sinus infection. HPI General Mode of arrival: ambulatory . Date/Time Provider Initiated Documentation: 12/06/19 08:17 . Limitations to Documentation: no limitations . Information obtained by: patient . HPI Narrative: 28-year-old female presents with dizziness and nausea associated with headache for the last 3 days. Patient states that she feels like she is on a plane. She denies any recent head trauma no vomiting no diarrhea no abdominal pain. Denies dysuria. Related Data Home Medications Medication Instructions Recorded Confirmed Unknown [No Known Home Meds] 10/02/19 12/06/19 meclizine [Motion Sickness 25 mg PO BID PRN #14 tab 12/06/19 (meclizine)] ondansetron HCl [Zofran] 4 mg PO Q8H PRN #7 tab 12/06/19 Previous Rx's Medication Instructions Recorded meclizine [Motion Sickness 25 mg PO BID PRN #14 tab 12/06/19 (meclizine)] ondansetron HCl [Zofran] 4 mg PO Q8H PRN #7 tab 12/06/19 Allergies Allergy/AdvReac Type Severity Reaction Status Date / Time Fish Containing Products AdvReac Mild Nausea Verified 10/02/19 11:43 General Stated Complaint: GenMedical DILSHAD: 3 Review of Systems Narrative: Constitutional: Negative for weight loss, alert and oriented, well groomed, normal body habitus, appears comfortable. HEENT: Denies trauma, blurry vision, nasal discharge, sore throat, trouble swallowing. Chest: Denies chest pain, palpitations, irregular rhythm, hypertension. Respiratory: Denies Shortness of breath, cough, hemoptysis. GI: Denies abdominal pain, nausea, vomiting, diarrhea, constipation. : Denies dysuria, hematuria, flank pain, rectal bleeding. Neuro: Denies, blurry vision, weakness, syncope, or facial numbness. Positive headache, positive dizziness. Hematologic: Denies easy bruising, intolerance to heat or cold, hair loss. [facility] Medical History Asthma Uses Inhaler prn. Triggers include: weather change, exercise, seasonal allergies. 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 Surgical History wisdom tooth extraction Family History Mother Depression Brother Depression Father No problems noted. Sister No problems noted. Sister No problems noted. Sister No problems noted. Sister No problems noted. Social History Smoking/Tobacco Use Status: Current every day Tobacco Type: cigarettes Alcohol Intake: current Alcohol Intake frequency: a few times a month Drug use: Daily Substance use type: marijuana Details: LAST USE: 03/17/19 Household members: children Do you feel safe at home: Yes Do you feel safe in your relationship?: Yes Exam Narrative Exam Narrative: Constitutional: Allert and oriented x3. Appears stated age. Normal body habitus. Head: Normocephalic, no trauma. Eyes: Pupils PERRLA, Red reflex noted, EOM's intact. Eyelids symmetrical withour lesions, discharge, or swelling. ENT: Bilateral TM's WNL, External ear normal to inspection, no mastoid TTP, swelling, or erythema, Nasal turbinates WNL, no nasal discharge. Normal dentition, Posterior pharynx WNL, no exudate. Chest: RRR, Normal S1, S2, distal pulses intact. Resp: Lungs clear to auscultation bilaterally, no wheezes, rales, or rhonchi. Musculoskeletal: Normal gait, 5/5 strength to all four extremities. Skin: No suspicious rashes or lesions. Capillary refill ?2 sec. Neurologic: Cranial nerves II-XII intact. Alert and oriented x 3. DTR's intact. Hematologic/Lymphatic: No ecchymosis, no lymphadenopathy. Course Vital Signs Vital signs: Vital Signs Temperature 36.8 C 12/06/19 08:09 Pulse 71 12/06/19 08:09 Respiratory Rate 16 12/06/19 08:09 Blood Pressure 126/79 12/06/19 08:09 Pulse Oximetry 98 12/06/19 08:09 Temperature 36.8 C 12/06/19 08:09 Temperature Source Tympanic 12/06/19 08:09 Pulse 71 12/06/19 08:09 Respiratory Rate 16 12/06/19 08:09 Respiratory Effort Non-Labored 12/06/19 08:12 Blood Pressure 126/79 12/06/19 08:09 Pulse Oximetry 98 12/06/19 08:09 Oxygen Delivery Method Room Air 12/06/19 08:09 Oxygen Flow Rate 0 12/06/19 08:09 Pain Level 0 12/06/19 08:09
[2019-12-06] MEDS: Meclizine 25 MG TAB PO (08:57)
[2019-12-06] MEDS: Ondansetron O.D.T. 4 MG TABEF (08:57)
[2019-12-06 09:04] LABS: Bilirubin Negative (Negative); Blood Negative (Negative); Clarity Clear (Clear); Glucose Negative (Negative); Ketones Negative (Negative); Leukocyte Esterase Negative (Negative); Nitrite Negative (Negative); Urobilinogen 0.2 EU/dL (Up TO 0.2); pH 7.5 (5-8)
[2019-12-06 09:24] VITALS: RESP 16
== END 2019-12-06 09:26 | disposition home or self-care (01) ==
PROVIDERS: Emergency Provider Registered Nurse Emergency; PCP Nurse Practitioner
DX: R11.0 Nausea (principal); R42 Dizziness and giddiness; R51 Headache
CPT/HCPCS: 81025; 99283; 81003

== ENCOUNTER 2021-07-25 11:45 | Emergency (ER) | payer MEDICAID, SELFPAY ==
[2021-07-25 11:48] VITALS: BP 129/65; PULSE 86; RESP 18; TEMP 36.8; O2SAT 99
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
[2021-07-25 12:07] VITALS: BP 129/65; PULSE 86; RESP 18; TEMP 36.8; O2SAT 99
== END 2021-07-25 12:07 | disposition home or self-care (01) ==
PROVIDERS: Emergency Provider Student in an Organized Health Care Education/Training Program; PCP Nurse Practitioner
DX: S71.152A Open bite, left thigh, initial encounter (principal); Y04.1XXA Assault by human bite, initial encounter
CPT/HCPCS: 99283

== ENCOUNTER 2022-02-28 08:36 | Outpatient (REF) | payer MEDICAID, SELFPAY ==
[2022-03-02 12:41] LABS: COVID-19 RT-PCR UVMMC Result Negative (Negative)
== END 2022-02-28 08:37 | disposition home or self-care (01) ==
LOC: NCHCN 08:36
PROVIDERS: PCP Nurse Practitioner; Visit Provider Nurse Practitioner Family
DX: Z20.822 Contact with and (suspected) exposure to COVID-19 (principal); R05.8 Other specified cough
CPT/HCPCS: U0003

== ENCOUNTER 2022-05-28 09:53 | Emergency (ER) | payer MEDICAID, SELFPAY ==
[2022-05-28 09:59] VITALS: BP 131/85; PULSE 84; RESP 14; TEMP 36.8; O2SAT 98
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
[2022-05-28] MEDS: Cyclobenzaprine 10 MG TAB, 3 TABS/BTL PO (10:43)
[2022-05-28] MEDS: Cyclobenzaprine 10 MG TAB PO (10:43)
== END 2022-05-28 10:33 | disposition home or self-care (01) ==
PROVIDERS: Emergency Provider Registered Nurse Emergency; PCP Nurse Practitioner Family
DX: M26.622 Arthralgia of left temporomandibular joint (principal); J45.909 Unspecified asthma, uncomplicated; Z87.891 Personal history of nicotine dependence
CPT/HCPCS: 99283; 99284

== ENCOUNTER 2022-08-29 11:08 | Emergency (ER) | payer MEDICAID, SELFPAY ==
[2022-08-29 11:14] VITALS: BP 124/64; PULSE 89; RESP 18; TEMP 36.8; O2SAT 99
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
== END 2022-08-29 12:35 | disposition home or self-care (01) ==
PROVIDERS: Emergency Provider Physician Assistant
DX: L03.115 Cellulitis of right lower limb (principal)
CPT/HCPCS: 81025; 99283

== ENCOUNTER 2022-09-02 12:32 | Outpatient (REF) | payer MEDICAID, SELFPAY ==
--- NOTE | 2022-09-02 10:30 | PAPFT_PTH ---
PATIENT: Mary Jane Guadalupe LOC: [facility] U#:[id number] AGE/SX: 31/F ROOM: RE09/02/[address]: Laura Ontiveros : 1990 BED: DIS: 09/02/2022 SPEC #: [id number] RECD: 09/05/22 12:52 STATUS: TANVIR RESarah #: [id number] ALLYSSA: 09/02/22 10:[address]: Laura Ontiveros DEPT: [facility] Cytology RECD BY: Fay Beckwith ENTERED: 09/05/22 12:52 SP TYPE: PAPFT JACLYN DR: Matthew Cortez DNP Tissues: 1 - CX/ENDOCX FOR PAP SMEARS Procedures: PAP THIN PREP/UVM Screening Comments: [id number]
== END 2022-09-02 12:33 | disposition home or self-care (01) ==
LOC: NCHCN 12:32
PROVIDERS: PCP Nurse Practitioner Family; Visit Provider Nurse Practitioner Family
DX: Z12.4 Encounter for screening for malignant neoplasm of cervix (principal)
CPT/HCPCS: 88142

== ENCOUNTER 2022-09-22 13:16 | Emergency (ER) | payer MEDICAID, SELFPAY ==
[2022-09-22 13:25] VITALS: BP 123/86; PULSE 92; RESP 18; TEMP 37; O2SAT 100
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
== END 2022-09-22 13:59 | disposition home or self-care (01) ==
PROVIDERS: Emergency Provider Emergency Medicine
DX: Z48.02 Encounter for removal of sutures
CPT/HCPCS: 99281

== ENCOUNTER 2022-12-04 09:18 | Emergency (ER) | payer MEDICAID, SELFPAY ==
[2022-12-04 09:23] VITALS: BP 126/77; PULSE 79; RESP 18; TEMP 36.7; O2SAT 99
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
[2022-12-04] MEDS: Dexamethasone 10 MG/ML VIAL IVP (09:30)
== END 2022-12-04 12:44 | disposition home or self-care (01) ==
LOC: ER 09:44
PROVIDERS: Emergency Provider Emergency Medicine
DX: H92.01 Otalgia, right ear (principal)
CPT/HCPCS: 96374; 99284; 99283; J1100

== ENCOUNTER 2023-02-15 05:19 | Outpatient (CLI) | payer MEDICAID, SELFPAY ==
[2023-02-15 11:20] LABS: Panorama Kit Sent via Fed Ex
[2023-02-15 11:23] LABS: Abs Immature Grans 0.02 10^3/uL (0.0-0.06); Absolute Basophil Count 0.04 10^3/uL (0.0-0.2); Absolute Eosinophil Count 0.05 10^3/uL (0.0-0.7); Absolute Lymphocyte Count 2.07 10^3/uL (1.2-3.4); Absolute Monocyte Count 0.37 10^3/uL (0.1-0.8); Absolute Neutrophil Count 5.62 10^3/uL (1.2-6.7); Basophils % 0.5; Eosinophils % 0.6; HCT 34.9 % (36.0-46.0); HGB 12.6 g/dL (11.2-15.7); Immature Grans % 0.2; Lymphocytes % 25.3; MCHC 36.1 % (32.0-36.0); MCV 91 fL (80-95); MPV 9.8 fL (8.0-11.0); Monocytes % 4.5; Neutrophils % 68.9; Platelet Count 226 10^3/uL (130-400); RBC 3.82 10^6/uL (3.93-5.22); RDW 12.5 % (11.7-14.6); RDW-SD 41.2 fL; WBC 8.17 10^3/uL (4.4-10.8)
[2023-02-15 12:21] LABS: TSH (W/Ref FT4) 0.99 uIU/mL (0.36-3.74)
[2023-02-16 08:58] LABS: Hepatitis B Surface Ag Negative (Negative)
[2023-02-16 09:43] LABS: Hepatitis C Ab w Rflx HCV PCR Negative (Negative)
[2023-02-16 10:05] LABS: HIV-1/2 Ag & Ab Screen Negative (Negative)
[2023-02-17 16:14] LABS: Syphilis IgG w/Reflex Nonreactive (Nonreactive)
[2023-02-17 16:50] LABS: Varicella IgG Antibody Positive (See Note)
[2023-02-17 17:00] LABS: Rubella IgG Ab (UVM) Positive (See Note)
== END 2023-02-15 05:20 | disposition home or self-care (01) ==
LOC: LBO 05:19
PROVIDERS: Visit Provider Advanced Practice Midwife
DX: Z34.91 Encounter for supervision of normal pregnancy, unspecified, first trimester
CPT/HCPCS: 36415; 86787; 86803; 86850; 86900; 86901; 87340; 87389; 84443; 85025; 86762; 86780

== ENCOUNTER 2023-02-15 11:43 | Outpatient (REF) | payer MEDICAID, SELFPAY ==
[2023-02-15 13:42] LABS: *AMPHETAMINES SCREEN URINE Negative (Negative); *BARBITURATES SCREEN URINE Negative (Negative); *BENZODIAZEPINES SCREEN URINE Negative (Negative); Cannabinoids THC Positive (Negative); Cocaine Screen,Urine Negative (Negative); METHADONE URINE SCREEN Negative (Negative); OPIATES URINE SCREEN Negative (Negative)
[2023-02-15 13:45] LABS: Tricyclic Antidepressants Negative (Negative)
[2023-02-16 13:53] LABS: Chlamydia Result Negative (Negative); GC Result Negative (Negative)
[2023-02-22 15:33] LABS: Buprenorphine Negative ng/mL (Cutoff: 5.0); Norbuprenorphine Negative ng/mL (Cutoff: 2.5)
== END 2023-02-15 11:44 | disposition home or self-care (01) ==
LOC: LBN 11:43
PROVIDERS: Visit Provider Advanced Practice Midwife
DX: Z34.91 Encounter for supervision of normal pregnancy, unspecified, first trimester (principal)
CPT/HCPCS: 80307; 80348; 87491; 87591; 87086; 87480; 87510; 87660

== ENCOUNTER 2023-06-15 03:36 | Outpatient (CLI) | payer MEDICAID, SELFPAY ==
[2023-06-15 10:56] LABS: HCT 31.9 % (36.0-46.0); HGB 11.6 g/dL (11.2-15.7); MCH 33.3 pg (27.0-33.0); MCHC 36.4 % (32.0-36.0); MCV 92 fL (80-95); Platelet Count 219 10^3/uL (130-400); RBC 3.48 10^6/uL (3.93-5.22); RDW 12.9 % (11.7-14.6); RDW-SD 42.6 fL; WBC 7.86 10^3/uL (4.4-10.8)
[2023-06-15 11:32] LABS: Glucose,1 Hr (Glucola) 101 mg/dL (80-140)
== END 2023-06-15 03:37 | disposition home or self-care (01) ==
LOC: LBO 03:36
PROVIDERS: Visit Provider Advanced Practice Midwife
DX: O36.0130 Maternal care for anti-D [Rh] antibodies, third trimester, not applicable or unspecified (principal); Z3A.28 28 weeks gestation of pregnancy; Z67.91 Unspecified blood type, Rh negative
CPT/HCPCS: 36415; 82950; 85027; 86850; 90384

== ENCOUNTER 2023-06-15 13:17 | Outpatient (REF) | payer MEDICAID, SELFPAY ==
[2023-06-15 16:08] LABS: *AMPHETAMINES SCREEN URINE Negative (Negative); *BARBITURATES SCREEN URINE Negative (Negative); *BENZODIAZEPINES SCREEN URINE Negative (Negative); Cannabinoids THC Positive (Negative); Cocaine Screen,Urine Negative (Negative); METHADONE URINE SCREEN Negative (Negative); OPIATES URINE SCREEN Negative (Negative)
[2023-06-15 16:09] LABS: Tricyclic Antidepressants Negative (Negative)
[2023-06-22 14:12] LABS: Buprenorphine Negative ng/mL (Cutoff: 5.0)
== END 2023-06-15 13:18 | disposition home or self-care (01) ==
LOC: LBN 13:17
PROVIDERS: Visit Provider Advanced Practice Midwife
DX: F12.90 Cannabis use, unspecified, uncomplicated (principal); Z34.93 Encounter for supervision of normal pregnancy, unspecified, third trimester
CPT/HCPCS: 80307; 80348

== ENCOUNTER 2023-07-18 22:05 | Outpatient (CLI) | payer MEDICAID, SELFPAY ==
[2023-07-20 09:35] LABS: HBs Antibody, Quant 167.4 mIU/mL (See Note); Hepatitis B Surface Ab Positive (See Note)
== END 2023-07-18 22:06 | disposition home or self-care (01) ==
LOC: LBO 22:06
PROVIDERS: Visit Provider Advanced Practice Midwife
DX: Z34.93 Encounter for supervision of normal pregnancy, unspecified, third trimester (principal); Z57.9 Occupational exposure to unspecified risk factor
CPT/HCPCS: 36415; 86706

== ENCOUNTER 2023-08-08 16:28 | Outpatient (REF) | payer MEDICAID, SELFPAY ==
[2023-08-08 18:14] LABS: *AMPHETAMINES SCREEN URINE Negative (Negative); *BARBITURATES SCREEN URINE Negative (Negative); *BENZODIAZEPINES SCREEN URINE Negative (Negative); Cannabinoids THC Positive (Negative); Cocaine Screen,Urine Negative (Negative); METHADONE URINE SCREEN Negative (Negative); OPIATES URINE SCREEN Negative (Negative)
[2023-08-08 18:15] LABS: Tricyclic Antidepressants Negative (Negative)
[2023-08-16 09:53] LABS: Buprenorphine Negative ng/mL (Cutoff: 5.0)
== END 2023-08-08 16:29 | disposition home or self-care (01) ==
LOC: LBN 16:28
PROVIDERS: PCP Advanced Practice Midwife; Visit Provider Advanced Practice Midwife
DX: Z34.93 Encounter for supervision of normal pregnancy, unspecified, third trimester (principal)
CPT/HCPCS: 80307; 80348; 87081

== ENCOUNTER 2023-09-01 20:03 | Inpatient (IN) | payer MEDICAID, SELFPAY ==
[2023-09-01] VITALS (12 sets, daily range): BP systolic 112–142; BP diastolic 61–74; PULSE 66–91; RESP 16–20; TEMP 36.7–37.1
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
[2023-09-01] MEDS: Oxytocin 10 UNITS/ML VIAL IM (20:48)
[2023-09-01 21:05] LABS: HCT 35.6 % (36.0-46.0); HGB 12.6 g/dL (11.2-15.7); MCH 32.4 pg (27.0-33.0); MCHC 35.4 % (32.0-36.0); MCV 92 fL (80-95); MPV 10.4 fL (8.0-11.0); Platelet Count 197 10^3/uL (130-400); RBC 3.89 10^6/uL (3.93-5.22); RDW 13.3 % (11.7-14.6); WBC 11.63 10^3/uL (4.4-10.8)
--- NOTE | 2023-09-01 21:22 | W.OBDELIVERY ---
Date of service: 09/01/23 Time of Service: 21:22 OB Labor/ Delivery Information Baby A Delivery Delivery Method: Spontaneaous Presentation: Cephalic Cephalic Position: Vertex Vertex Position: Right Occipital Anterior Cord Description-Baby A: 3 Vessels and Clamped/Cut Amniotic Fluid: Clear Estimated Blood Loss: 400 Delivery Outcome: Liveborn Infant Complications: none Transferred: Remains with Mother Note: Mary Jane presented in transitional labor after having strong contractions beginning this evening around 1930 and experienced SROM while en route to hospital. On arrival FHR 150 CAT I and 9cm. Second stage huddle was held. Patient was unable to allow IV access for GBS prophylaxis. She used nitrous for pain management and delivery a live female over intact perineum at 2037. Baby was placed skin to skin and positive bonding noted. Pitocin 10 units IM given. Placenta delivered at 2053, with maternal pushing effort, intact. Fundus firms to U with massage. EBL 400cc. Sponge, needle and instrument count are correct. Cord bloods obtained. Expect normal PP course. Providers Nurse Art Specialist: Ana Luisa Luke Labor/Delivery Information Number of Babies in Womb: 1 Steroids Given: None Reason Steroids Not Administered: N/A Group Beta Strep: Positive Antibiotics Administered: No Rubella Status: Immune Blood Type: O- Varicella Immunity: Immune Born En Route: No Maternal Complications: None Shoulder Dystocia: No Stages of Labor Onset of Labor Date: 09/01/23 Onset of Labor Time: 19:30 Complete Dilatation Date: 09/01/23 Complete Dilatation Time: 20:25 Labor - Stage 1 Duration: 55 minutes ROM Baby A: 09/01/23 ROM Baby A: 19:40 Infant Delivery Date-Baby A: 09/01/23 Infant Delivery Time-Baby A: 20:38 Labor Stage 2 Duration: 13 minutes Placenta Delivery Date-Baby A: 09/01/23 Placenta Delivery Time-Baby A: 20:54 Labor-Stage 3 Duration: 16 minutes Total Length of Labor-Baby A: 1 hours and 8 minutes Baby A Gender: Female
[2023-09-01] MEDS: Ibuprofen 600 MG TAB PO (21:40)
[2023-09-01] MEDS: Acetaminophen 325 MG TAB 650 MG PO (21:40)
[2023-09-02] MEDS: Acetaminophen 325 MG TAB 650 MG PO ×3 (01:25→15:30)
[2023-09-02] MEDS: Ibuprofen 600 MG TAB PO ×3 (05:11→21:39)
--- NOTE | 2023-09-02 06:57 | W.PM.OBPNV1 ---
Date of service: 09/02/23 Time of Service: 06:57 Assessment and Plan Assessment and plan (1) care following vaginal delivery: Status: Acute Assessment and plan: 1. Stable PP day 1 2. expect 48 hour stay as delivery was too quick to allow for antibiotics for GBS 3. Continue present management. (2) Lactating mother: Status: Acute Assessment and plan: 1. Breast feeding is well established, experienced breast feeding Mother, continue present management. Subjective Subjective Interval history: Doing well, able to do own ADL's without assist. Pain is controlled by tylenol, ibuprofen and heating pad. baby status: Doing well, Nursing well and Rooming in [place] feeding status: Exclusively breast feeding Exam Physical Exam Vital signs: Temp Pulse Resp BP 98.7 F 72 16 112/61 09/01/23 23:00 09/01/23 23:00 09/01/23 23:00 09/01/23 23:00 Vital Signs Reviewed: Yes Constitutional Constitutional: no acute distress, average body habitus and cooperative HEENT Exam HEENT Exam: Normal Neck Exam Neck Exam: Normal (normal visual inspection) Respiratory Exam Respiratory Exam: Normal Cardiovascular Exam Cardiovascular Exam: Normal Abdominal Exam Abdomen: Other (normal exam) Fundal Exam Fundus: Below Umbilicus and Firm Comment: small lochia noted. Rectal Exam Rectal Exam: Not Done Exam Perineum: Intact and Normal Extremities Exam Extremity Exam: Normal (denies calf tenderness) and Full ROM Back/Spine/Pelvis Exam Back Exam: Normal Skin Exam Skin Exam: Normal Neurological Exam Neurological Exam: Normal Psychiatric Exam Psychiatric Exam: Normal Results Hemoglobin/Hematocrit: Hgb 12.6 g/dL (11.2-15.7) 09/01/23 20:09 Hct 35.6 % (36.0-46.0) L 09/01/23 20:09 Abnormal Lab Findings: Abnormal Labs 09/01/23 20:09 WBC 11.63 H RBC 3.89 L Hct 35.6 L
[2023-09-02 09:56] VITALS: BP 119/82; PULSE 87; RESP 16; TEMP 36.6
[2023-09-02 16:02] VITALS: BP 130/83; PULSE 87; RESP 16
[2023-09-02 20:00] VITALS: BP 124/84; PULSE 78; RESP 16; TEMP 36.4
--- NOTE | 2023-09-03 09:59 | DSE_ITS ---
Date of service: 09/03/23 Time of Service: 08:45 DS: Diagnosis Discharge Diagnosis (1) care following vaginal delivery: Status: Acute Asessment and Plan: 1. Normal PP course to date 2. Breast feeding is well established 3. Planning Mirena at 6 week PP visit 4. PP warning signs reviewed including discussion on PPD 5. Will RTO in 2 and 6 weeks or prn (2) Lactating mother: Status: Acute Asessment and Plan: 1. Breast feeding is going well. Experienced Mother 2. Will follow up with Pediatric provider as recommended. Discharge Plan Disposition Patient Disposition: Home Condition: Good Discharge Details Reason For Visit: Labor Admit Date/Time: 09/01/23 20:03 Admit Provider: Ana Luisa Luke Attending Provider: Ana Luisa Luke Primary Care Provider: Ana Luisa Luke Hospital Course Hospital Course: Normal vaginal delivery over intact perineum after precipitous < 2 hour labor. Normal PP course to date. Planning Mirena for contraception. PP warning signs reviewed. Home Meds and New Rx's Prescriptions: New ibuprofen 600 mg Tablet 600 mg PO Q6H PRN PRNQty: 90 0RF Continued Fish Oil [phone] mg capsule,delayed release(DR/EC) 1 cap PO DAILY Qty: 30 3RF dexmethylphenidate [Focalin XR] 25 mg capsule,ER biphasic 50-50 25 mg PO DAILY Patient Comments: TAKE ONE CAPSULE BY MOUTH EVERY MORNING Discharge Instructions Instructions: Depression (GEN), Intrauterine Device (GEN) Stand Alone Forms: Instructions, Post Vaginal Deliver Activity:: Activity as Tolerated Equipment/Supplies:: No Equipment Needed Diet:: As Tolerated Discharge Orders Discharge Orders: Discharge Order (Routine); Ordered 09/03/23 Ordered By: Ana Luisa Luke OB:DS Summary Summary Vaginal Delivery Method: Spontaneaous Episiotomy Description: None Laceration Description: None Laceration Extension: N/A Procedures: Baby is named [place] Contraception Discussed Contraception Discussed: Yes Contraceptive Plan: IUD, [place] Infant Gender-Baby A: Female Status at Discharge Functional status at discharge: independent ambulation Overall status at discharge: patient is back to baseline Mental Status: mental status grossly normal Speech and Movement: speech and movement normal Mood: congruent mood Affect: normal affect Time Spent with Patient providing and/or coordinating discharge services: Less than 30 minutes Exam Physical Exam Vital signs: Temp Pulse Resp BP 97.6 F 78 16 124/84 09/02/23 20:00 09/02/23 20:00 09/02/23 20:00 09/02/23 20:00 Vital Signs Reviewed: Yes Constitutional Constitutional: no acute distress, average body habitus and cooperative HEENT Exam HEENT Exam: Normal Neck Exam Neck Exam: Normal (normal visual inspection) Respiratory Exam Respiratory Exam: Normal Cardiovascular Exam Cardiovascular Exam: Normal Abdominal Exam Abdomen: Other (normal exam) Fundal Exam Fundus: Below Umbilicus and Firm Comment: small lochia noted. KH Rectal Exam Rectal Exam: Not Done Exam Perineum: Intact and Normal Extremities Exam Extremity Exam: Normal (denies calf tenderness) and Full ROM Back/Spine/Pelvis Exam Back Exam: Normal Skin Exam Skin Exam: Normal Neurological Exam Neurological Exam: Normal Psychiatric Exam Psychiatric Exam: Normal PFSH All Active Problems Lactating mother (Acute) care following vaginal delivery (Acute) Edema of right foot (Acute) Occupational exposure in workplace (Acute) Other specified counseling (Acute) Stenosis, pulmonary congenital, valve (Acute) Marijuana smoker (Acute) (Acute) Rh negative state in antepartum period (Acute) Depression (Acute 04/11/14) Medical History Normal labor Group B Streptococcus carrier, +RV culture, currently Right upper extremity numbness Human bite Abnormal biochemical finding on screening of mother, antepartum (01/25/16) Pt has Anti-Fya and Anti-M ABs in her last screen. She is s/p Rhogam at 15 weeks for VB and at 28 weeks for Rh neg status, so also anti-D. Providers need to notify the lab for specific crossmatch if pt comes in for PTL or when pt comes in for labor just in case, as lab needs a headstart for this pt Lab aware pt is now term 03/02/16, w/ EDC 03/15/16 Dependent drug abuse (11/07/13) hx opiate dependence, neg tox screening except THC this quit 2011 Asthma Uses Inhaler prn. Triggers include: weather change, exercise, seasonal allergies. 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 Zoloft use detention. 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 Surgical History History of carpal tunnel surgery of right wrist wisdom tooth extraction Family History Mother Depression Heart disease Brother Depression Sister Depression Sister Depression Sister Depression Sister Depression Social History Smoking/Tobacco Use Status: Former Tobacco Use Smoking risk assessment performed?: Yes Alcohol Intake: former Drug use: Daily Substance use type: marijuana Details: LAST USE: 03/17/19 Household members: children Housing: apartment Do you feel safe at home: Yes Do you feel safe in your relationship?: Yes Female Reproductive History Menstrual control method: none History History 6 Para 4 Hx # Term Pregnancies 4 Multiple births 0 Hx # Pregnancies 0 Ectopic pregnancies 0 AB induced 0 Hx Number of Living Children 4 AB spontaneous 1 Past Pregnancies Del. Date GA/Weeks # Preg Succ Route Wgt Sex Labor Lgth Anesth esia Location [facility] Complic 11/18/13 40 No Yes vaginal 7 lb 1 oz Female [facility] local [place] 10/21/14 40 No Yes vaginal 7 lb Male [place] 03/13/16 40 No Yes vaginal 9 lb Male local [place] 09/09/17 38 No Yes vaginal 7 lb 1 oz Female 2 local [place] Delivery Date: 11/18/13 Last Updated by: Ana Luisa Islas CNM [place] Delivery Date: 10/21/14 Last Updated by: Ana Luisa Islas CNM [place] Delivery Date: 03/13/16 Last Updated by: Ana Luisa Islas CNM [place]. Anti-M, and Anti-Bella and Anti-Fya antibodies . Delivery Date: 09/09/17 Last Updated by: RK Casey DS: Data Vitals/I&O Vitals and I&O: Vital Signs Temperature 97.6 F 09/02/23 20:00 Temperature Source Tympanic 09/02/23 20:00 Pulse 78 09/02/23 20:00 Pulse Rhythm Regular 09/02/23 20:00 Respiratory Rate 16 09/02/23 20:00 Blood Pressure 124/84 09/02/23 20:00 Blood Pressure Mean 97 09/02/23 20:00 Oxygen Delivery Method Room Air 09/01/23 21:38 Oxygen Flow Rate 0 09/01/23 21:38 Pain Level 0 09/02/23 22:39 Comment H/a is bettetr 09/02/23 16:02 Intake & Output 09/02/23 09/02/23 09/03/23 11:59 23:59 11:59 Other: Urine Color Pale Yellow Data Completed and Pending Labs on day of discharge: Labs from last 24 hours 09/02/23 09/01/23 17:20 20:09 Patient ABO/Rh O Negative Antibody Screen NEGATIVE Screen Pending Rhogam Unit Number [id number] Unit Expiration Date 08/23/2025 Product Lot # [id number]
[2023-09-03 10:37] VITALS: BP 153/84; PULSE 87; RESP 18; TEMP 36.5
[2023-09-03 18:39] VITALS: BP 122/84; PULSE 86
[2023-09-03 20:00] VITALS: BP 118/76; PULSE 90; RESP 18; TEMP 36.8
[2023-09-04] MEDS: Acetaminophen 325 MG TAB 650 MG PO (00:53)
[2023-09-04] MEDS: Ibuprofen 600 MG TAB PO (06:33)
--- NOTE | 2023-09-04 07:05 | W.PM.OBDISCH ---
Date of service: 09/04/23 Time of Service: 07:05 DS: Diagnosis Discharge Diagnosis (1) care following vaginal delivery: Status: Acute Asessment and Plan: 1. Discharge was initially planned for 09/03 but baby had to stay due to elevated bilirubin so discharge was cancelled and is now being done this morning. 2. Stable PP day 3. 3. Breast feeding well established 4. Will RTO in 2 and 6 weeks PP, plans Mirena for contraception. (2) Lactating mother: Status: Acute Asessment and Plan: 1. Breast feeding is well established 2. Continue present management, to follow up with Pediatrics as scheduled after discharge. Discharge Plan Disposition Patient Disposition: Home Condition: Good Discharge Details Reason For Visit: Term Labor Admit Date/Time: 09/01/23 20:03 Admit Provider: Ana Luisa Luke Attending Provider: Ana Luisa Luke Primary Care Provider: Ana Luisa Luke Hospital Course Hospital Course: Normal vaginal delivery over intact perineum after precipitous < 2 hour labor. Normal PP course to date. Planning Mirena for contraception. PP warning signs reviewed. Home Meds and New Rx's Prescriptions: New ibuprofen 600 mg Tablet 600 mg PO Q6H PRN PRNQty: 90 0RF Continued Fish Oil [phone] mg capsule,delayed release(DR/EC) 1 cap PO DAILY Qty: 30 3RF dexmethylphenidate [Focalin XR] 25 mg capsule,ER biphasic 50-50 25 mg PO DAILY Patient Comments: TAKE ONE CAPSULE BY MOUTH EVERY MORNING Discharge Instructions Instructions: Depression (GEN), Intrauterine Device (GEN) Stand Alone Forms: Instructions, BC Post Vaginal Deliver Activity:: Activity as Tolerated Equipment/Supplies:: No Equipment Needed Diet:: As Tolerated Discharge Orders Discharge Orders: Discharge Order (Routine); Ordered 09/04/23 Ordered By: Ana Luisa Luke OB:DS Summary Summary Vaginal Delivery Method: Spontaneaous Episiotomy Description: None Laceration Description: None Laceration Extension: N/A Contraception Discussed Contraception Discussed: Yes, [place] Infant Gender-Baby A: Female Status at Discharge Functional status at discharge: independent ambulation Overall status at discharge: patient is back to baseline Mental Status: mental status grossly normal Speech and Movement: speech and movement normal Mood: congruent mood Affect: normal affect Exam Physical Exam Vital signs: Temp Pulse Resp BP 98.3 F 90 18 118/76 09/03/23 20:00 09/03/23 20:00 09/03/23 20:00 09/03/23 20:00 Vital Signs Reviewed: Yes Constitutional Constitutional: no acute distress, average body habitus and cooperative HEENT Exam HEENT Exam: Normal Neck Exam Neck Exam: Normal (normal visual inspection) Breast Exam filling: Breast Exam: Other (filling) Nipple Exam: Normal Respiratory Exam Respiratory Exam: Normal Cardiovascular Exam Cardiovascular Exam: Normal Abdominal Exam Abdomen: Other (normal exam) Fundal Exam Fundus: Below Umbilicus and Firm Comment: small lochia noted. KH Rectal Exam Rectal Exam: Not Done Exam Perineum: Intact and Normal Extremities Exam Extremity Exam: Normal (denies calf tenderness) and Full ROM Back/Spine/Pelvis Exam Back Exam: Normal Skin Exam Skin Exam: Normal Neurological Exam Neurological Exam: Normal Psychiatric Exam Psychiatric Exam: Normal PFSH All Active Problems Lactating mother (Acute) care following vaginal delivery (Acute) Edema of right foot (Acute) Occupational exposure in workplace (Acute) Other specified counseling (Acute) Stenosis, pulmonary congenital, valve (Acute) Marijuana smoker (Acute) (Acute) Rh negative state in antepartum period (Acute) Depression (Acute 04/11/14) Medical History Normal labor Group B Streptococcus carrier, +RV culture, currently Right upper extremity numbness Human bite Abnormal biochemical finding on screening of mother, antepartum (01/25/16) Pt has Anti-Fya and Anti-M ABs in her last screen. She is s/p Rhogam at 15 weeks for VB and at 28 weeks for Rh neg status, so also anti-D. Providers need to notify the lab for specific crossmatch if pt comes in for PTL or when pt comes in for labor just in case, as lab needs a headstart for this pt Lab aware pt is now term 03/02/16, w/ EDC 03/15/16 Dependent drug abuse (11/07/13) hx opiate dependence, neg tox screening except THC this quit 2011 Asthma Uses Inhaler prn. Triggers include: weather change, exercise, seasonal allergies. 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 Surgical History History of carpal tunnel surgery of right wrist wisdom tooth extraction Family History Mother Depression Heart disease Brother Depression Sister Depression Sister Depression Sister Depression Sister Depression Social History Smoking/Tobacco Use Status: Former Tobacco Use Smoking risk assessment performed?: Yes Alcohol Intake: former Drug use: Daily Substance use type: marijuana Details: LAST USE: 03/17/19 Household members: children Housing: apartment Do you feel safe at home: Yes Do you feel safe in your relationship?: Yes Female Reproductive History Menstrual control method: none History History 6 Para 4 Hx # Term Pregnancies 4 Multiple births 0 Hx # Pregnancies 0 Ectopic pregnancies 0 AB induced 0 Hx Number of Living Children 4 AB spontaneous 1 Past Pregnancies Del. Date GA/Weeks # Preg Succ Route Wgt Sex Labor Lgth Anesthesia Location [facility] 11/18/13 40 No Yes vaginal 7 lb 1 oz Female [facility] [place] 10/21/14 40 No Yes vaginal 7 lb Male [place] 03/13/16 40 No Yes vaginal 9 lb Male [facility] [place] 09/09/17 38 No Yes vaginal 7 lb 1 oz Female [address] [place] [address] Delivery Date: 11/18/13 Last Updated by: Ana Luisa Islas CNM [place] Delivery Date: 10/21/14 Last Updated by: Ana Luisa Islas CNM [place] Delivery Date: 03/13/16 Last Updated by: Ana Luisa Islas CNM [place]. Anti-M, and Anti-Bella and Anti-Fya antibodies . Delivery Date: 09/09/17 Last Updated by: RK Casey DS: Data Vitals/I&O Vitals and I&O: Vital Signs Temperature 98.3 F 09/03/23 20:00 Temperature Source Oral 09/03/23 20:00 Pulse 90 09/03/23 20:00 Pulse Rhythm Regular 09/03/23 20:00 Respiratory Rate 18 09/03/23 20:00 Blood Pressure 118/76 09/03/23 20:00 Blood Pressure Mean 90 09/03/23 20:00 Oxygen Delivery Method Room Air 09/01/23 21:38 Oxygen Flow Rate 0 09/01/23 21:38 Pain Level 0 09/04/23 06:33 Comment pt talking during BP reading 09/03/23 10:37 Intake & Output 09/03/23 09/03/23 09/04/23 11:59 23:59 11:59 Other: Urine Color Pale
[2023-09-04 07:40] VITALS: BP 125/82; PULSE 84; RESP 14; TEMP 37.4
== END 2023-09-04 09:40 | disposition home or self-care (01) | DRG 806 ==
LOC: OBS 20:08
PROVIDERS: Admitting Provider Advanced Practice Midwife; PCP Advanced Practice Midwife; Visit Provider Advanced Practice Midwife
DX: O99.42 Diseases of the circulatory system complicating childbirth (principal); O36.0930 Maternal care for other rhesus isoimmunization, third trimester, not applicable or unspecified; Z37.0 Single live birth; Q22.1 Congenital pulmonary valve stenosis; O99.324 Drug use complicating childbirth; Z3A.39 39 weeks gestation of pregnancy; O99.824 Streptococcus B carrier state complicating childbirth; O99.344 Other mental disorders complicating childbirth; O99.52 Diseases of the respiratory system complicating childbirth; J45.909 Unspecified asthma, uncomplicated; F12.90 Cannabis use, unspecified, uncomplicated; F32.A Depression, unspecified
CPT/HCPCS: 36415; 85027; 85461; 86850; 86900; 86901; 90384; J2590; J2790

== ENCOUNTER 2023-10-19 14:50 | Outpatient (REF) | payer MEDICAID, SELFPAY ==
[2023-10-20 14:42] LABS: Chlamydia Result Negative (Negative); GC Result Negative (Negative)
== END 2023-10-19 14:51 | disposition home or self-care (01) ==
LOC: LBN 14:50
PROVIDERS: PCP Advanced Practice Midwife; Visit Provider Advanced Practice Midwife
DX: Z30.430 Encounter for insertion of intrauterine contraceptive device (principal)
CPT/HCPCS: 87491; 87591

== ENCOUNTER 2024-10-30 16:23 | Outpatient (REF) | payer MEDICAID, SELFPAY | END 2024-10-30 16:24 | disposition home or self-care (01) | LOC: NCHCN 16:23 | PROVIDERS: PCP Advanced Practice Midwife; Visit Provider Obstetrics & Gynecology Gynecology | DX: R35.0 Frequency of micturition (principal); R82.89 Other abnormal findings on cytological and histological examination of urine | CPT/HCPCS: 87086 ==

== ENCOUNTER 2024-12-02 03:13 | Outpatient (CLI) | payer MEDICAID, SELFPAY ==
--- NOTE | 2024-12-02 | DI.MRI_ITS ---
Exam(s) MR CERVICAL SPINE WO EXAM: MR CERVICAL SPINE WO CLINICAL HISTORY: Bilateral carpal tunnel syndrome, G56.03; rt hand numbness, ? radiculopathy TECHNIQUE: Multiplanar multisequence MRI of the cervical spine was performed without intravenous con trast. COMPARISON: There are no plain films of the cervical spine available at the time of this MRI interpr etation FINDINGS: CERVICOMEDULLARY JUNCTION: Intact with no evidence of cerebellar tonsillar ectopia. No obvious abnor mality of the odontoid process. No evidence of Chiari 1 malformation. CERVICAL SPINAL CORD: There is no abnormal signal in the cervical spinal cord and no evidence of foca l cord atrophy nor focal cord swelling. OSSEOUS:There are no cervical fractures evident. No significant osseous lesions in the cervical vert ebrae. There is abnormal straightening of the cervical curvature which is probably related to muscle spasm or positioning. INDIVIDUAL LEVELS: C2-3: No disc herniation nor central canal stenosis. No foraminal stenosis. No facet arthropathy. C3-4: No disc herniation nor central canal stenosis.No facet arthropathy. No foraminal stenosis. C4-5: No disc herniation nor central canal stenosis.No facet arthropathy. No foraminal stenosis C5-6: Mild decreased disc height and decreased disc hydration signal. There are Modic type 1 sub end plate marrow edema changes on both sides of this disc space. Posteriorly there is annular bulging wh ich is slightly more prominent on the left side. This effaces the anterior thecal sac. AP measureme nt of the canal at this level is 7 mm. Facet joints appear unremarkable. On the left side there is a tiny Luschka joint osteophyte. No left-sided foraminal stenosis. No foraminal stenosis on the rig ht side. C6-7: Normal disc height and signal. No disc herniation or central canal stenosis. No foraminal epifanio nosis no facet arthropathy. C7-T1: No disc herniation nor central canal stenosis. No facet arthropathy.No foraminal stenosis. IMPRESSION: 1. At C5-6 level there is mild decreased disc height and signal and posteriorly annular bulging as de scribed above. There is mild effacement of the thecal sac. AP measurement of the canal at this leve l is 7 mm. There is no facet arthropathy. No significant foraminal stenosis at this level. 2. Other levels appear unremarkable. 3. DATA REPOSITORY:
== END 2024-12-02 03:33 ==
LOC: DI 03:13
PROVIDERS: PCP Advanced Practice Midwife; Visit Provider Neurological Surgery
DX: G56.03 Carpal tunnel syndrome, bilateral upper limbs (principal); M50.222 Other cervical disc displacement at C5-C6 level
CPT/HCPCS: 72141

== ENCOUNTER 2025-06-13 15:33 | Emergency (ER) | payer MEDICAID, SELFPAY ==
[2025-06-13 15:40] VITALS: PULSE 85; RESP 12; O2SAT 97
[2025-06-13 16:10] VITALS: BP 139/91; TEMP 36.5
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
[2025-06-13] MEDS: Acetaminophen 500 MG TAB 1000 MG PO (16:59)
[2025-06-13] MEDS: Cyclobenzaprine 10 MG TAB PO (17:00)
[2025-06-13] MEDS: Ketorolac 30 MG/ML VIAL IM (17:00)
[2025-06-13 17:57] VITALS: BP 121/77; PULSE 78; RESP 16; TEMP 37; O2SAT 100
== END 2025-06-13 18:04 | disposition home or self-care (01) ==
PROVIDERS: Emergency Provider Physician Assistant; PCP Advanced Practice Midwife
DX: R07.89 Other chest pain (principal); Z87.891 Personal history of nicotine dependence; V43.52XA Car driver injured in collision with other type car in traffic accident, initial encounter
CPT/HCPCS: 99283; 71046; J1885